=== PATIENT | male | born 1955 | race Caucasian/White ===

== ENCOUNTER 2016-05-12 10:19 | Inpatient (IN) | payer OTHER ==
[~2016-05-12 10:19] MED LIST: BUPIVACAINE 0.5% 30 ML SDV ONE; HEPARIN 1000 UNIT/1 ML MDV ONE; SKIN ADHESIVE (DERMABOND) 1 EACH TP ONE; ceFAZolin 1 GM/5 ML SYR ONE; cefOXitin SODIUM 1 GM in D5W 50 ML IV ONE
[2016-05-12] MEDS ORDERED: LIDOCAINE 1% 2 ML INJ ONE (10:44)
[2016-05-12] MEDS ORDERED: CEFAZOLIN 1 GM/DEXTROSE/50 ML BAG IV ONE (10:49)
[2016-05-12 11:52] LABS: ANION GAP 12 mEq/L (8-16); CALCIUM 9.1 mg/dL (8.5-10.4); CARBON DIOXIDE 23 mEq/l (22-31); CHLORIDE 97 mEq/L (97-110); CREATININE 1.9 mg/dL (0.7-1.3); GLOMERULAR FILTRATION RATE 36; GLUCOSE 84 mg/dL (70-100); POTASSIUM 5.3 mEq/L (3.5-5.2); SODIUM 132 mEq/L (134-144)
[2016-05-12] MEDS ORDERED: ACETAMINOPHEN 325 MG TAB PO PRN (12:21)
--- NOTE | 2016-05-12 12:32 | POSTOPPROG ---
Post Op Note Date of Operation: 05/12/16 Surgeon: Main Magaña Public Health Worker: Richie Duncan PA-C, THEODORE Aguilar MS, Ifeanyi Domínguez MS Anesthesiologist: Promise Leigh MD Anesthesia: GET(General Endotracheal) Pre-op Diagnosis: colon cancer, umbilical hernia Post-op Diagnosis: same Procedure: lap assisted transverse colectomy and umbilical hernia repair Findings: 10 mm ulcer in transverse colon rather than distal ascending colon Inf/Abcess present in the surg proc area at time of surgery?: No EBL: 100-500 Complications: none Specimen(s): umbilical hernia sac (permanent), transverse colon (fresh)
[2016-05-12] MEDS ORDERED: PROPOFOL 200 MG/20 ML VIAL ONE (12:33)
[2016-05-12] MEDS ORDERED: HYDROmorphONE/DILAUDID 2 MG/ML INJ ONE ×3 (12:33→16:27)
[2016-05-12] MEDS ORDERED: fentaNYL 250 MCG/5 ML INJ ONE (12:33)
[2016-05-12] MEDS ORDERED: HYDROmorphONE/DILAUDID 1 MG/ML SYR IVP PRN (12:33)
[2016-05-12] MEDS ORDERED: HYDROCODONE/APAP 5/325 TAB PO PRN (12:35)
[2016-05-12] MEDS ORDERED: ROCURONIUM 100 MG/10 ML VIAL ONE (12:37)
[2016-05-12] MEDS ORDERED: DEXAMETHASONE 4 MG/ML VIAL ONE (12:37)
[2016-05-12] MEDS ORDERED: LIDOCAINE 2% 100 MG/5 ML SYR ONE (12:37)
[2016-05-12] MEDS ORDERED: LIDOCAINE HCL 160 MG/4 ML LTA KIT TP ONE (12:37)
[2016-05-12] MEDS ORDERED: GLYCOPYRROLATE 0.2 MG/1 ML VIAL ONE (14:59)
[2016-05-12] MEDS ORDERED: NEOSTIGMINE METHYLSULFATE 5 MG/5 ML SYR ONE (14:59)
[2016-05-12] MEDS ORDERED: HYDROmorphONE/DILAUDID 1 MG/ML SYR IVP ONE (16:32)
[2016-05-12] MEDS ORDERED: NALOXONE HCL 0.4 MG/ML INJ IVP PRN ×2 (16:32→18:17)
[2016-05-12] MEDS: D5W 1/2 NS W/ 20 KCl/L 1,000 ML IV SCH (17:24)
[2016-05-12] MEDS: cefOXitin SODIUM 1 GM in D5W 50 ML IV SCH ×2 (18:14→23:53)
--- NOTE | 2016-05-12 18:23 | SOAPPROG ---
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
[2016-05-12] MEDS ORDERED: ALBUMIN 5% 500 ML IV ONE (18:30)
[2016-05-12] MEDS: HYDROmorphONE/DILAUDID 6 MG/30 ML PCA IV PRN (19:45)
[2016-05-12] MEDS: OXYCODONE/APAP 5/325 TAB PO PRN (21:15)
[2016-05-13] MEDS: OXYCODONE/APAP 5/325 TAB PO PRN ×4 (01:33→18:49)
[2016-05-13 04:57] LABS: HEMATOCRIT 18.5 % (40.0-51.0); HEMOGLOBIN 6.2 g/dL (13.7-17.5)
[2016-05-13] MEDS ORDERED: DIAZEPAM 5 MG TAB PO ONE (05:00)
[2016-05-13] MEDS: cefOXitin SODIUM 1 GM in D5W 50 ML IV SCH (05:02)
[2016-05-13 05:13] LABS: ANION GAP 10 mEq/L (8-16); CALCIUM 8.4 mg/dL (8.5-10.4); CARBON DIOXIDE 21 mEq/l (22-31); CHLORIDE 98 mEq/L (97-110); CREATININE 3.2 mg/dL (0.7-1.3); GLOMERULAR FILTRATION RATE 20; GLUCOSE 166 mg/dL (70-100); POTASSIUM 6.1 mEq/L (3.5-5.2); SODIUM 129 mEq/L (134-144)
[2016-05-13] MEDS: HYDROmorphONE/DILAUDID 6 MG/30 ML PCA IV PRN ×3 (07:19→21:00)
[2016-05-13 07:56] LABS: % IMMATURE GRANULYOCYTES 0.6 % (0.0-1.1); ABSOLUTE IMMATURE GRANULOCYTES 0.09 10^3/uL (0.00-0.10); ADD DIFF? NO; ADD MORPH? YES; ADD SCAN? NO; ATYPICAL LYMPHOCYTE FLAG 10 (0-99); FRAGMENT RBC FLAG 0 (0-99); LEFT SHIFT FLG 0 (0-99); LIPEMIA HEMOLYSIS FLAG 80 (0-99); MEAN CELL HEMOGLOBIN 29.9 pg (27.9-34.1); MEAN CELL HEMOGLOBIN CONCENTR. 32.8 g/dL (32.4-36.7); MEAN CELL VOLUME 91.2 fL (81.5-99.8); MEAN PLATELET VOLUME 9.7 fL (8.7-11.7); PLATELET CLUMPS FLAG 0 (0-99); PLATELET COUNT 126 10^3/uL (150-400); RED BLOOD CELL COUNT 1.94 10^6/uL (4.40-6.38); RED CELL DISTRIBUTION WIDTH 16.3 % (11.5-15.2)
[2016-05-13 08:01] LABS: HEMATOCRIT 17.7 % (40.0-51.0); HEMOGLOBIN 5.8 g/dL (13.7-17.5)
[2016-05-13 08:07] LABS: APTT 28.1 SEC (23.0-38.0); INR 1.14 (0.83-1.16); PROTIME(PATIENT) 14.5 SEC (12.0-15.0)
[2016-05-13 08:18] LABS: ALANINE AMINOTRANSFERASE 31 IU/L (21-72); ALBUMIN 3.4 g/dL (3.5-5.0); ALKALINE PHOSPHATASE 48 IU/L (38-126); ANION GAP 9 mEq/L (8-16); ASPARTATE AMINOTRANSFERASE 47 IU/L (17-59); BILIRUBIN,TOTAL 0.5 mg/dL (0.1-1.4); BILIRUBIN-CONJUGATED 0.4 mg/dL (0.0-0.5); BILIRUBIN-UNCONJUGATED 0.1 mg/dL (0.0-1.1); CALCIUM 8.4 mg/dL (8.5-10.4); CARBON DIOXIDE 23 mEq/l (22-31); CHLORIDE 98 mEq/L (97-110); CREATININE 3.6 mg/dL (0.7-1.3); GLOMERULAR FILTRATION RATE 17; GLUCOSE 154 mg/dL (70-100); SODIUM 130 mEq/L (134-144); TOTAL PROTEIN 5.6 g/dL (6.3-8.2)
[2016-05-13 08:20] LABS: HYPOCHROMIA 2+; MICROCYTES 1+; STOMATOCYTES 1+
[2016-05-13 08:21] LABS: PLATELET ESTIMATE DECREASED (ADEQ)
[2016-05-13 08:23] LABS: POTASSIUM 6.5 mEq/L (3.5-5.2)
[2016-05-13] MEDS ORDERED: ENOXAPARIN 40 MG/0.4 ML SYR SC SCH (09:00)
[2016-05-13] MEDS: D5W 1/2 NS W/ 20 KCl/L 1,000 ML IV SCH (09:46)
[2016-05-13] MEDS ORDERED: INSULIN REGULAR HUMAN 100 UNIT/ML IVP ONE (10:27)
[2016-05-13] MEDS ORDERED: D50W 25 GM/50 ML SYR IVP ONE ×2 (10:28→13:12)
[2016-05-13] MEDS ORDERED: CALCIUM GLUC 10% 1 GM/10 ML VIAL IVP ONE ×2 (10:30→11:30)
[2016-05-13] MEDS ORDERED: CALCIUM GLUCONATE 50 ML IV ONE (11:00)
[2016-05-13] MEDS ORDERED: SODIUM BICARBONATE 50 MEQ/50 ML SYR IVP ONE (11:23)
[2016-05-13] MEDS: SODIUM BICARBONATE 150 MEQ in D5W 1,000 ML IV SCH (11:47)
--- NOTE | 2016-05-13 12:37 | PDGENHP ---
History and Physical - Chief Complaint SANDRA, hyperkalemia - History of Present Illness Mr. Simon is a 60 yo M with h/o CKD stage III with baseline Cr around 2.0 from previous SANDRA with metformin and contrast, who sees Dr. Dickerson, who was admitted yesterday after an elective hernia repair and colectomy for colon cancer. Nephrology consulted today for hyperkalemia and SANDRA. Pt presented with Cr of 1.9 , at his baseline. This am, he is noted to be anemic with Hgb down to 5.8, and hyperkalemic with K up to 6.5 and Cr up to 3.6. He had 100ml UOP overnight and only 20ml this am. He notes feeling a bit anxious but breathing comfortably currently on 5L NC. History Information - Allergies/Home Medication List Allergies/Adverse Reactions: morphine Allergy (Verified 01/15/16 12:24) Hives NSAIDS (Non-Steroidal Anti-Inflamma Allergy (Verified 01/15/16 12:24) Sulfa (Sulfonamide Antibiotics) Allergy (Verified 01/15/16 12:24) Unknown Home Medications: Atenolol [Tenormin 50 mg (*)] 50 mg PO DAILY 02/04/11 [Last Taken 05/12/16] Omeprazole Magnesium [Prilosec Otc] 20 mg PO DAILY 02/04/11 [Last Taken 05/12/16 ] Calcitriol [Calcitriol (*)] 0.25 mcg PO MOWEFRSA 11/16/15 [Last Taken 05/11/16] Fenofibrate [Lofibra] 54 mg PO DAILY 11/16/15 [Last Taken 05/11/16] Furosemide [Lasix 40 MG (*)] 40 mg PO DAILY 11/16/15 [Last Taken 05/11/16] Lisinopril [Zestril 10 mg (*)] 15 mg PO DAILY 11/16/15 [Last Taken 05/11/16] Topiramate [Topamax 25MG (*)] 25 mg PO DAILY 11/16/15 [Last Taken 04/28/16] Allopurinol [Allopurinol 300 MG (RX)] 300 mg PO DAILY 05/03/16 [Last Taken 05/12] Aspirin [Aspirin 81mg (*)] 81 mg PO MOWEFRSA 05/03/16 [Last Taken 05/05/16] Minoxidil [Minoxidil 10 mg (*)] 10 mg PO BID 05/13/16 [Last Taken 05/12/16] oxyCODONE IR [Oxycodone Ir (*)] 10 mg PO Q6 PRN 05/13/16 [Last Taken Unknown] I have personally reviewed and updated: medical history Past Medical History: CKD stage III. HTN. DM. colon cancer. HLD - Surgical History Additional surgical history: Neck surgeries. L hip surgery. R shoulder surgery. hernia repair and colectomy - Family History Additional family history: noncontributory - Social History Smoking Status: Former smoker Review of Systems ROS: 10pt was reviewed & negative except for what was stated in HPI & below Physical Exam Temp Pulse Resp BP Pulse Ox 36.7 C 65 9 L 108/64 90 L 05/13/16 10:00 05/13/16 10:00 05/13/16 10:00 05/13/16 10:00 05/13/16 10:00 O2 (L/minute) 4 Constitutional: no apparent distress, appears nourished, not in pain Eyes: PERRL, anicteric sclera, EOMI Ears, Nose, Mouth, Throat: moist mucous membranes, hearing normal Cardiovascular: regular rate and rhythym, pulses symmetric bilaterally, edema (+ 2 bilateral lower extremities) Peripheral Pulses: 2+: dorsalis-pedis (R), dorsalis-pedis (L) Respiratory: no respiratory distress, clear to auscultation Gastrointestinal: other (soft, mild diffuse TTP with no guarding or rebound or rigidity) Skin: warm, no rashes or abrasions, No mottled Musculoskeletal: no muscle tenderness, no joint effusions Neurologic: AAOx3, CN II-XII Intact, No asterixes Psychiatric: interacting appropriately, not anxious, not encephalopathic, thought process linear Lab Data & Imaging Review 05/13/16 07:45 05/13/16 07:45 WBC 15.94 10^3/uL (3.80-9.50) H 05/13/16 07:45 RBC 1.94 10^6/uL (4.40-6.38) L 05/13/16 07:45 Hgb 5.8 g/dL (13.7-17.5) L* 05/13/16 07:45 Hct 17.7 % (40.0-51.0) L* 05/13/16 07:45 MCV 91.2 fL (81.5-99.8) 05/13/16 07:45 MCH 29.9 pg (27.9-34.1) 05/13/16 07:45 MCHC 32.8 g/dL (32.4-36.7) 05/13/16 07:45 RDW 16.3 % (11.5-15.2) H 05/13/16 07:45 Plt Count 126 10^3/uL (150-400) L 05/13/16 07:45 MPV 9.7 fL (8.7-11.7) 05/13/16 07:45 Neut % (Auto) 89.8 % (39.3-74.2) H 05/13/16 07:45 Lymph % (Auto) 2.6 % (15.0-45.0) L 05/13/16 07:45 [place] % (Auto) 6.9 % (4.5-13.0) 05/13/16 07:45 Eos % (Auto) 0.0 % (0.6-7.6) L 05/13/16 07:45 Baso % (Auto) 0.1 % (0.3-1.7) L 05/13/16 07:45 Nucleat RBC Rel Count 0.0 % (0.0-0.2) 05/13/16 07:45 Absolute Neuts (auto) 14.32 10^3/uL (1.70-6.50) H 05/13/16 07:45 Absolute Lymphs (auto) 0.42 10^3/uL (1.00-3.00) L 05/13/16 07:45 Absolute Monos (auto) 1.10 10^3/uL (0.30-0.80) H 05/13/16 07:45 Absolute Eos (auto) 0.00 10^3/uL (0.03-0.40) L 05/13/16 07:45 Absolute Basos (auto) 0.01 10^3/uL (0.02-0.10) L 05/13/16 07:45 Absolute Nucleated RBC 0.00 10^3/uL (0-0.01) 05/13/16 07:45 Immature Gran % 0.6 % (0.0-1.1) 05/13/16 07:45 Immature Gran # 0.09 10^3/uL (0.00-0.10) 05/13/16 07:45 Platelet Estimate DECREASED (ADEQ) L 05/13/16 07:45 Hypochromasia 2+ H 05/13/16 07:45 Microcytic Cells 1+ H 05/13/16 07:45 Stomatocytes 1+ H 05/13/16 07:45 PT 14.5 SEC (12.0-15.0) 05/13/16 07:45 INR 1.14 (0.83-1.16) 05/13/16 07:45 APTT 28.1 SEC (23.0-38.0) 05/13/16 07:45 Sodium 130 mEq/L (134-144) L 05/13/16 07:45 Potassium 6.5 mEq/L (3.5-5.2) H* 05/13/16 07:45 Chloride 98 mEq/L (97-110) 05/13/16 07:45 Carbon Dioxide 23 mEq/l (22-31) 05/13/16 07:45 Anion Gap 9 mEq/L (8-16) 05/13/16 07:45 BUN 48 mg/dL (7-23) H 05/13/16 07:45 Creatinine 3.6 mg/dL (0.7-1.3) H 05/13/16 07:45 Estimated GFR 17 05/13/16 07:45 Glucose 154 mg/dL (70-100) H 05/13/16 07:45 Calcium 8.4 mg/dL (8.5-10.4) L 05/13/16 07:45 Total Bilirubin 0.5 mg/dL (0.1-1.4) 05/13/16 07:45 Conjugated Bilirubin 0.4 mg/dL (0.0-0.5) 05/13/16 07:45 Unconjugated Bilirubin 0.1 mg/dL (0.0-1.1) 05/13/16 07:45 AST 47 IU/L (17-59) 05/13/16 07:45 ALT 31 IU/L (21-72) 05/13/16 07:45 Alkaline Phosphatase 48 IU/L (38-126) 05/13/16 07:45 Total Protein 5.6 g/dL (6.3-8.2) L 05/13/16 07:45 Albumin 3.4 g/dL (3.5-5.0) L 05/13/16 07:45 Patient ABO/Rh O POSITIVE 05/12/16 11:17 Antibody Screen NEGATIVE 05/12/16 11:17 Crossmatch IS Only See Detail 05/12/16 11:17 Assessment & Plan Assessment: Assessment/Plan: SANDRA on CKD stage III: likely has ATN perioperatively, oliguric, hyperkalemic. - Will continue to monitor. - If cannot correct hyperkalemia, may require HD. - Strict I/Os. - Avoid MOM, morphine, demerol, NSAIDs, contrast, aminoglycosides, fleets, and other nephrotoxins. Hyperkalemia: K up to 6.5. - Pt unable to get urgent therapies on regular floor, will transfer to ICU. - Will order calcium, insulin/D50 to be given once he is in ICU. - Will give one amp bicarb now. - Will stop IVFs containing bicarb. - Will give 250ml NS bolus and then switch IVFs to D5W with three amps of bicarb. - Will continue to monitor closely. - Will not give kayexalate given his recent bowel surgery. - Can try Lasix although his UOP may not respond with SANDRA as above. - If unable to improve, may need emergent HD today. Anemia: Hgb 5.8, pt getting 2 units PRBCs now. Thank you for the interesting consult. Nephrology will continue to follow, please call if you have any additional questions or concerns.
[2016-05-13 12:40] LABS: ANION GAP 8 mEq/L (8-16); CALCIUM 8.3 mg/dL (8.5-10.4); CARBON DIOXIDE 22 mEq/l (22-31); CHLORIDE 98 mEq/L (97-110); CREATININE 3.7 mg/dL (0.7-1.3); GLOMERULAR FILTRATION RATE 17; GLUCOSE 118 mg/dL (70-100); SODIUM 128 mEq/L (134-144)
[2016-05-13 12:59] LABS: POTASSIUM 6.4 mEq/L (3.5-5.2)
[2016-05-13] MEDS ORDERED: INSULIN REGULAR HUMAN 100 UNIT/ML ONE (13:12)
[2016-05-13 14:35] LABS: HEMATOCRIT 21.4 % (40.0-51.0); HEMOGLOBIN 7.2 g/dL (13.7-17.5); MEAN CELL HEMOGLOBIN 29.1 pg (27.9-34.1); MEAN CELL HEMOGLOBIN CONCENTR. 33.6 g/dL (32.4-36.7); MEAN CELL VOLUME 86.6 fL (81.5-99.8); RED BLOOD CELL COUNT 2.47 10^6/uL (4.40-6.38); RED CELL DISTRIBUTION WIDTH 16.1 % (11.5-15.2)
[2016-05-13 14:40] LABS: ALANINE AMINOTRANSFERASE 26 IU/L (21-72); ALBUMIN 3.3 g/dL (3.5-5.0); ALKALINE PHOSPHATASE 47 IU/L (38-126); ANION GAP 8 mEq/L (8-16); ASPARTATE AMINOTRANSFERASE 52 IU/L (17-59); BILIRUBIN,TOTAL 1.1 mg/dL (0.1-1.4); CALCIUM 8.5 mg/dL (8.5-10.4); CARBON DIOXIDE 25 mEq/l (22-31); CHLORIDE 99 mEq/L (97-110); GLOMERULAR FILTRATION RATE 15; GLUCOSE 77 mg/dL (70-100); POTASSIUM 5.4 mEq/L (3.5-5.2); SODIUM 132 mEq/L (134-144); TOTAL PROTEIN 5.5 g/dL (6.3-8.2)
[2016-05-13] MEDS ORDERED: FUROSEMIDE 100 MG/10 ML VIAL IVP ONE ×2 (16:00→23:00)
--- NOTE | 2016-05-13 16:03 | SOAPPROG ---
SOAP Progress Note Assessment/Plan: Assessment: 60yo male s/p colectomy for cancer, significant bleeding overnight with decreased HCT, under went transfusion. Renal consulted given worsening renal failure. Patient seen earlier this AM with Dr Magaña Pain controlled, not passing any gas yet. Denies SOB, chest pain PE awake alert comfortable abdomen distended, RLQ incision with small hematoma, sutures in place, soft. Plan: appreciate renal consult will continue to follow closely. 05/13/16 16:00 Objective: Vital Signs Temp Pulse Resp BP Pulse Ox 36.7 C 78 8 L 129/66 H 95 05/13/16 10:00 05/13/16 13:35 05/13/16 13:35 05/13/16 13:35 05/13/16 13:35 Laboratory Results 05/13/16 14:13 05/13/16 14:13 05/12/16 05/13/16 05/14/16 05:59 05:59 05:59 Intake Total 2050 Output Total 600 Balance 1450 PT 14.5 SEC (12.0-15.0) 05/13/16 07:45 INR 1.14 (0.83-1.16) 05/13/16 07:45 ICD10 Worksheet Patient Problems: Problems Problem Status Onset Cervical stenosis of spine Acute
[2016-05-13 17:48] LABS: HEMATOCRIT 20.5 % (40.0-51.0); HEMOGLOBIN 7.1 g/dL (13.7-17.5); MEAN CELL HEMOGLOBIN 30.2 pg (27.9-34.1); MEAN CELL HEMOGLOBIN CONCENTR. 34.6 g/dL (32.4-36.7); MEAN CELL VOLUME 87.2 fL (81.5-99.8); RED BLOOD CELL COUNT 2.35 10^6/uL (4.40-6.38); RED CELL DISTRIBUTION WIDTH 16.3 % (11.5-15.2)
[2016-05-13 18:09] LABS: ANION GAP 8 mEq/L (8-16); CALCIUM 8.4 mg/dL (8.5-10.4); CARBON DIOXIDE 25 mEq/l (22-31); CHLORIDE 97 mEq/L (97-110); CREATININE 4.1 mg/dL (0.7-1.3); GLOMERULAR FILTRATION RATE 15; GLUCOSE 109 mg/dL (70-100); POTASSIUM 5.3 mEq/L (3.5-5.2); SODIUM 130 mEq/L (134-144)
--- NOTE | 2016-05-13 18:29 | GCON ---
[f rep st] CONSULTATION CRITICAL CARE CONSULT DATE OF CONSULTATION: 05/13/2016 HISTORY OF PRESENT ILLNESS: The patient is a 60-year-old male with a recent diagnosis of colon canc er who was admitted for a colectomy and hernia repair. Overnight, he had some significant bleeding and required 2 units of blood but also was found to be hyperkalemic and required urgent transfer to the intensive care unit to receive definitive therapy. The patient says that he has a known history of chronic kidney disease with a creatinine normally at around 2.0 but has otherwise been fairly st able. He also has hypertension and diabetes. He has never required dialysis in the past and is oth erwise feeling well. He denied any chest pain or palpitations. There has been no syncope or no arr hythmias that have been noted, and he denies any current pain. PAST MEDICAL HISTORY: Includes: 1. Colon cancer. 2. Chronic kidney disease stage 3. 3. Hypertension. 4. Gastroesophageal reflux disease. 5. Gout. 6. Hyperlipidemia. 7. Diabetes. PAST SURGICAL HISTORY: Includes: 1. Neck surgery. 2. Left hip. 3. Right shoulder surgery. 4. Hernia repair. 5. The colectomy, as described above. SOCIAL HISTORY: He is a former smoker but none currently. No significant alcohol. FAMILY HISTORY: Noncontributory. MEDICATIONS: As of earlier today included atenolol, omeprazole, calcitriol, Lofibra, Lasix, Zestril , Topamax, allopurinol, aspirin, minoxidil, oxycodone immediate release. PHYSICAL EXAM: VITAL SIGNS: He was afebrile. Blood pressure was 108/64, heart rate of 65, oxygen saturation was 90% on 4 L. GENERAL: He was overweight but awake and alert, in no apparent distress and oriented x3. Able to speak in full sentences without using accessory muscles for breathing. H EENT: Pupils were equally round and reactive to light. Nonicteric and noninjected. Mucous membran es are moist, without erythema or exudate. NECK: Supple, without adenopathy or jugular venous dist ention. RESPIRATORY: Breath sounds were clear to auscultation bilaterally, without wheezes, rubs, or rales. HEART: A regular rate and rhythm, without obvious murmur. ABDOMEN: Hypoactive bowel to louann, was otherwise soft and not particularly tender, without rebound. EXTREMITIES: Show no clubbin g, cyanosis, or edema. NEUROLOGIC: Nonfocal, including cranial nerves and deep tendon reflexes. S KIN: Warm and dry, without evidence of rash. OBJECTIVE DATA: Includes a white count of 15.9 with a hematocrit of 17.7, and platelets of 126. Hi s sodium was 130, potassium 6.5, chloride 98, bicarb 23, BUN 48, creatinine 3.6, glucose 154. Album in was 3.4, but LFTs were normal. ASSESSMENT/PLAN: 1. Hyperkalemia. This may be from hypovolemia in the setting of chronic kidney disease and ongoing Lasix. Nephrology has already been consulted, and I agree with their plans. He has received calci um, insulin, D50, a bicarb amp followed by a bicarb drip. We will consider some Lasix in the near f uture but we are concerned about his kidney function at this time. He may end up requiring dialysis subsequently but the noon lab showed the potassium down to 5.4, with a slight increase of his creat inine to 4.0. The hematocrit was up to 21.4, and he remains normotensive at this time. Will have t o do careful laboratory evaluation with another chemistry set this evening and consider whether or n ot dialysis will be imminently required and will also, of course, have to avoid all nephrotoxins. 2. Anemia, postoperatively. He does not appear to be actively bleeding at this time but I think th at ongoing evaluation of his hematocrit overnight would certainly be warranted. 3. Colectomy. Leave the oral advancement to diet with Dr. Magaña at this time but this appears to b e relatively stable and I do not feel that additional surgery is required right at this moment. /[id number]/MODL
[2016-05-14] MEDS: SODIUM BICARBONATE 150 MEQ in D5W 1,000 ML IV SCH (01:42)
[2016-05-14] MEDS: HYDROmorphONE/DILAUDID 6 MG/30 ML PCA IV PRN ×4 (01:59→21:35)
[2016-05-14] MEDS: OXYCODONE/APAP 5/325 TAB PO PRN ×3 (03:32→19:40)
[2016-05-14 04:24] LABS: % IMMATURE GRANULYOCYTES 0.5 % (0.0-1.1); ABSOLUTE IMMATURE GRANULOCYTES 0.04 10^3/uL (0.00-0.10); ADD DIFF? NO; ADD MORPH? YES; ADD SCAN? NO; ATYPICAL LYMPHOCYTE FLAG 0 (0-99); FRAGMENT RBC FLAG 0 (0-99); HEMATOCRIT 19.6 % (40.0-51.0); LEFT SHIFT FLG 40 (0-99); LIPEMIA HEMOLYSIS FLAG 90 (0-99); MEAN CELL HEMOGLOBIN 30.1 pg (27.9-34.1); MEAN CELL HEMOGLOBIN CONCENTR. 34.7 g/dL (32.4-36.7); MEAN CELL VOLUME 86.7 fL (81.5-99.8); MEAN PLATELET VOLUME 10.4 fL (8.7-11.7); PLATELET CLUMPS FLAG 10 (0-99); PLATELET COUNT 95 10^3/uL (150-400); RED BLOOD CELL COUNT 2.26 10^6/uL (4.40-6.38); RED CELL DISTRIBUTION WIDTH 16.6 % (11.5-15.2)
[2016-05-14 04:30] LABS: ALBUMIN 3.2 g/dL (3.5-5.0); ANION GAP 10 mEq/L (8-16); CALCIUM 8.2 mg/dL (8.5-10.4); CARBON DIOXIDE 26 mEq/l (22-31); CHLORIDE 96 mEq/L (97-110); CREATININE 3.8 mg/dL (0.7-1.3); GLOMERULAR FILTRATION RATE 16; GLUCOSE 115 mg/dL (70-100); POTASSIUM 5.6 mEq/L (3.5-5.2); SODIUM 132 mEq/L (134-144)
[2016-05-14 04:48] LABS: HEMOGLOBIN 6.8 g/dL (13.7-17.5)
[2016-05-14 06:49] LABS: PLATELET ESTIMATE DECREASED (ADEQ)
[2016-05-14 06:50] LABS: HYPOCHROMIA 2+; MICROCYTES 1+; POLYCHROMASIA 1+
[2016-05-14] MEDS ORDERED: FUROSEMIDE 100 MG/10 ML VIAL IVP ONE (09:34)
--- NOTE | 2016-05-14 09:39 | SOAPPROG ---
SOAP Progress Note Assessment/Plan: Assessment/Plan: SANDRA on CKD stage III: likely has ATN perioperatively, was oliguric and hyperkalemic. Now with good UOP with Lasix, Cr peaked at 4.1 and today is down to 3.8. - Will continue to monitor. - Getting IVFs and PRBCs today. - No emergent need for HD. - Avoid MOM, morphine, demerol, NSAIDs, contrast, aminoglycosides, fleets, and other nephrotoxins. Hyperkalemia: improved, K up to 6.5 yesterday, got calcium, insulin/D50, bicarb amp, bicarb ggt, and Lasix. K down to 5.6 today. - Will give another dose of Lasix today. - Continue bicarb ggt. - No need for HD. - Will continue to monitor. - Please avoid fluids containing potassium. - Avoid kayexalate given his recent bowel surery. Anemia: Hgb still 6.8, getting more PRBCs today. Subjective: No acute events overnight. Pt remains anemic, getting more PRBCs transfused today. He is responding well to Lasix with good UOP now, 1850ml overnight. Objective: Vital Signs Temp Pulse Resp BP Pulse Ox 36.9 C 77 12 137/67 H 95 05/13/16 20:00 05/14/16 06:00 05/14/16 06:00 05/14/16 06:00 05/14/16 06:00 Laboratory Results 05/14/16 04:07 05/14/16 04:07 05/13/16 05/14/16 05/15/16 05:59 05:59 05:59 Intake Total 2050 1245 Output Total 600 1850 Balance 1450 -605 PT 14.5 SEC (12.0-15.0) 05/13/16 07:45 INR 1.14 (0.83-1.16) 05/13/16 07:45 General: alert and oriented, no acute distress Eyes; EOMI, PERRL OP: Clear CV: RRR Resp: nonlabored respiraitons on 5L NC Abd: Soft, distended Ext: trace edema BLE Neuro: CN II-XII grossly intact, no asterixis Psych: cooperative, appropriate mood and affect ICD10 Worksheet Patient Problems: Problems Problem Status Onset Cervical stenosis of spine Acute
[2016-05-14 12:07] LABS: ALBUMIN 3.2 g/dL (3.5-5.0); ANION GAP 10 mEq/L (8-16); CALCIUM 8.3 mg/dL (8.5-10.4); CARBON DIOXIDE 26 mEq/l (22-31); CHLORIDE 96 mEq/L (97-110); CREATININE 3.9 mg/dL (0.7-1.3); GLOMERULAR FILTRATION RATE 16; GLUCOSE 116 mg/dL (70-100); POTASSIUM 5.5 mEq/L (3.5-5.2); SODIUM 132 mEq/L (134-144)
[2016-05-14] MEDS ORDERED: CANN-EASE 2 GM TUBE TP ONE (12:56)
[2016-05-14 13:24] LABS: HEMATOCRIT 25.1 % (40.0-51.0); HEMOGLOBIN 8.6 g/dL (13.7-17.5)
--- NOTE | 2016-05-14 16:31 | PDINTPN ---
Hospitality Director Progress Note Assessment/Plan: Assessment/plan: 60 M with CKD and colon cancer s/p resection 05/[address] Magaña, complicated by acute on chronic renal failure and postoperative severe anemia. He was treated with RBCs, as well as Calcium, Insulin/D50, HCO3 push and drip with resolution of his severe hyperkalemia. His pain has been controlled and he is able to ambulate in the halls without difficulty. * Acute on CKD- probably hypovolemic with severe anemia. He has responded well to the HCO3 drip and small doses of lasix with excellent UOP. No HD indicated at this time. * Anemia- he required 2 units 3/24 and 2 more units today, though I dont see active bleeding at the moment (eg per VS). Recheck looks OK and will continue to follow. Discussed with Dr. Magaña and holding off on abdominal CT at the moment. Check haptoglobin * HTN- as pout patient he was taking atenolol 50, lisinopril 10, minoxidil 10, lasix 40. His BP is controlled at the moment, but we may need to start resuming outpatient meds soon. * GERD on omeprazole as outpatient- will start now * Subjective: Stable overnight. iven lasix by renal with brisk UOP and improved potassium Objective: Vital Signs Temp Pulse Resp BP Pulse Ox 37.1 C 73 14 135/67 H 95 05/14/16 12:00 05/14/16 14:00 05/14/16 14:00 05/14/16 14:00 05/14/16 14:00 Laboratory Results 05/14/16 13:05 05/14/16 04:14 05/13/16 05/14/16 05/15/16 05:59 05:59 05:59 Intake Total 2050 1245 Output Total 600 1850 1625 Balance 1450 -605 -1625 PT 14.5 SEC (12.0-15.0) 05/13/16 07:45 INR 1.14 (0.83-1.16) 05/13/16 07:45 Physical Exam - Physical Exam General Appearance: alert, no apparent distress EENT: PERRL/EOMI Neck: supple Respiratory: lungs clear, normal breath sounds, No respiratory distress, No rales, No rhonchi Cardiac/Chest: normal peripheral pulses, regular rate, rhythm, No edema Abdomen: non-tender, soft, No distended, No guarding Skin: normal color, warm/dry Lymphatic: no adenopathy Extremities: No pedal edema Neuro/Psych: alert, normal mood/affect, oriented x 3 ICD10 Worksheet Patient Problems: Problems Problem Status Onset Cervical stenosis of spine Acute
--- NOTE | 2016-05-14 16:44 | SOAPPROG ---
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 05/12/16 18:21 05/14/16 16:41 LOOK STABLE TODAY / URINE OUTPUT IS EXCELLENT / CREATININE STABLE AT 3.8 / HEMATOCRIT UP TO 25 / ABDOMEN SOFT NOT REALLY TENDER BUT MILDLY DISTENDED / CONTINUE OBSERVATION AND HOPEFULLY CONTINUED RENAL IMPROVEMENT Objective: Vital Signs Temp Pulse Resp BP Pulse Ox 37 C 73 13 124/56 H 95 05/14/16 16:00 05/14/16 16:00 05/14/16 16:00 05/14/16 16:00 05/14/16 16:00 Laboratory Results 05/14/16 13:05 05/14/16 04:14 05/13/16 05/14/16 05/15/16 05:59 05:59 05:59 Intake Total 2050 1245 Output Total 600 1850 2475 Balance 1450 -605 -2475 PT 14.5 SEC (12.0-15.0) 05/13/16 07:45 INR 1.14 (0.83-1.16) 05/13/16 07:45 ICD10 Worksheet Patient Problems: Problems Problem Status Onset Cervical stenosis of spine Acute
[2016-05-14 17:06] LABS: HEMATOCRIT 23.3 % (40.0-51.0); HEMOGLOBIN 8.2 g/dL (13.7-17.5)
[2016-05-14 19:34] LABS: ALBUMIN 3.3 g/dL (3.5-5.0); ANION GAP 9 mEq/L (8-16); CALCIUM 8.3 mg/dL (8.5-10.4); CARBON DIOXIDE 32 mEq/l (22-31); CHLORIDE 92 mEq/L (97-110); CREATININE 3.4 mg/dL (0.7-1.3); GLOMERULAR FILTRATION RATE 18; GLUCOSE 143 mg/dL (70-100); POTASSIUM 5.4 mEq/L (3.5-5.2); SODIUM 133 mEq/L (134-144)
[2016-05-14] MEDS ORDERED: NS 1,000 ML IV SCH (20:00)
[2016-05-15] MEDS: OXYCODONE/APAP 5/325 TAB PO PRN ×3 (00:10→21:10)
[2016-05-15] MEDS ORDERED: SODIUM CL NASAL 45 ML BTL EACHNARE PRN (02:01)
[2016-05-15 06:24] LABS: HEMATOCRIT 22.7 % (40.0-51.0); HEMOGLOBIN 7.6 g/dL (13.7-17.5); MEAN CELL HEMOGLOBIN 28.9 pg (27.9-34.1); MEAN CELL HEMOGLOBIN CONCENTR. 33.5 g/dL (32.4-36.7); MEAN CELL VOLUME 86.3 fL (81.5-99.8); RED BLOOD CELL COUNT 2.63 10^6/uL (4.40-6.38); RED CELL DISTRIBUTION WIDTH 17.7 % (11.5-15.2)
[2016-05-15 06:44] LABS: ANION GAP 9 mEq/L (8-16); CALCIUM 8.3 mg/dL (8.5-10.4); CARBON DIOXIDE 30 mEq/l (22-31); CHLORIDE 98 mEq/L (97-110); CREATININE 3.3 mg/dL (0.7-1.3); GLOMERULAR FILTRATION RATE 19; GLUCOSE 85 mg/dL (70-100); POTASSIUM 5.4 mEq/L (3.5-5.2); SODIUM 137 mEq/L (134-144)
[2016-05-15 10:09] LABS: INR 1.08 (0.83-1.16); PROTIME(PATIENT) 13.9 SEC (12.0-15.0)
--- NOTE | 2016-05-15 10:38 | SOAPPROG ---
SOAP Progress Note Assessment/Plan: Assessment/Plan: SANDRA on CKD stage III: likely has ATN perioperatively, was oliguric and hyperkalemic. Now with good UOP with Lasix, Cr peaked at 4.1 and today is down to 3.3. - Will continue to monitor. - Will continue NS @ 50ml/hr. - No emergent need for HD. - Avoid MOM, morphine, demerol, NSAIDs, contrast, aminoglycosides, fleets, and other nephrotoxins. Hyperkalemia: improved, K up to 6.5 o Monday, got calcium, insulin/D50, bicarb amp, bicarb ggt, and Lasix. K down to 5.4 today. - Will continue NS. - No need for HD. - Will continue to monitor. - Please avoid fluids containing potassium. - Avoid kayexalate given his recent bowel surery. Anemia: Hgb improved to 7.6 with additional PRBCs given, will monitor. Subjective: No acute events overnight. Pt still with some abdominal pain, but walking around today, overall better. He has had large UOP in past 24 hours. Objective: Vital Signs Temp Pulse Resp BP Pulse Ox 37.3 C 79 14 149/92 H 95 05/15/16 08:00 05/15/16 10:00 05/15/16 10:00 05/15/16 10:00 05/15/16 10:00 Laboratory Results 05/15/16 05:55 05/15/16 05:55 05/14/16 05/15/16 05/16/16 05:59 05:59 05:59 Intake Total 1245 1480 Output Total 1850 3725 270 Balance -605 -2245 -270 PT 13.9 SEC (12.0-15.0) 05/15/16 09:50 INR 1.08 (0.83-1.16) 05/15/16 09:50 General: alert and oriented, no acute distress Eyes; EOMI, PERRL OP: Clear CV: RRR Resp: nonlabored respirations on NC Abd: Soft, distended Ext: trace edema BLE Neuro: CN II-XII grossly intact, no asterixis Psych: cooperative, appropriate mood and affect ICD10 Worksheet Patient Problems: Problems Problem Status Onset Cervical stenosis of spine Acute
--- NOTE | 2016-05-15 12:20 | SOAPPROG ---
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 05/12/16 18:21 05/14/16 16:41 LOOK STABLE TODAY / URINE OUTPUT IS EXCELLENT / CREATININE STABLE AT 3.8 / HEMATOCRIT UP TO 25 / ABDOMEN SOFT NOT REALLY TENDER BUT MILDLY DISTENDED / CONTINUE OBSERVATION AND HOPEFULLY CONTINUED RENAL IMPROVEMENT 05/15/16 12:18 VS STABLE/ SOME BS/ WOUND OK/ AFEBRILE/ HCT DRIFTING DOWN/ MODERATELY DISTENDED/ PATH PENDING/ CREATININE IMPROVING Objective: Vital Signs Temp Pulse Resp BP Pulse Ox 36.9 C 81 17 142/67 H 93 05/15/16 12:00 05/15/16 12:00 05/15/16 12:00 05/15/16 12:00 05/15/16 12:00 Laboratory Results 05/15/16 05:55 05/14/16 05/15/16 05/16/16 05:59 05:59 05:59 Intake Total 1245 1480 Output Total 1850 3725 270 Balance -605 -2245 -270 PT 13.9 SEC (12.0-15.0) 05/15/16 09:50 INR 1.08 (0.83-1.16) 05/15/16 09:50 ICD10 Worksheet Patient Problems: Problems Problem Status Onset Cervical stenosis of spine Acute
[2016-05-15 12:21] LABS: HEMOGLOBIN 7.8 g/dL (13.7-17.5); MEAN CELL HEMOGLOBIN 29.5 pg (27.9-34.1); MEAN CELL HEMOGLOBIN CONCENTR. 33.9 g/dL (32.4-36.7); MEAN CELL VOLUME 87.1 fL (81.5-99.8); RED BLOOD CELL COUNT 2.64 10^6/uL (4.40-6.38); RED CELL DISTRIBUTION WIDTH 17.6 % (11.5-15.2)
[2016-05-15 16:14] LABS: HEMATOCRIT 23.3 % (40.0-51.0); HEMOGLOBIN 7.9 g/dL (13.7-17.5)
--- NOTE | 2016-05-15 16:31 | PDINTPN ---
Superintendent Track Progress Note Assessment/Plan: Assessment/plan: 60 M with CKD and colon cancer s/p resection 05/[address] Magaña, complicated by acute on chronic renal failure and postoperative severe anemia. He was treated with RBCs, as well as Calcium, Insulin/D50, HCO3 push and drip with resolution of his severe hyperkalemia. His pain has been controlled and he is able to ambulate in the halls without difficulty. * Acute on CKD- probably hypovolemic with severe anemia. He has responded well to the HCO3 drip and lasix with excellent UOP. No HD indicated at this time. Creatinine continues to fall, now at 3.3. Renal managing * Anemia- he required 2 units 05/13 and 2 more units /. H/H holding steady for now. No CT indicated. * HTN- as outpatient he was taking atenolol 50, lisinopril 10, minoxidil 10, lasix 40. Resume atenolol today * GERD on omeprazole as outpatient- * Probably OK for SDU if not floor * 05/15/16 16:26 Subjective: Stable overnight. Abdominal pain controlled. Objective: Vital Signs Temp Pulse Resp BP Pulse Ox 36.9 C 66 12 146/62 H 93 05/15/16 12:00 05/15/16 14:00 05/15/16 14:00 05/15/16 14:00 05/15/16 14:00 Laboratory Results 05/15/16 16:05 05/15/16 05:55 05/14/16 05/15/16 05/16/16 05:59 05:59 05:59 Intake Total 1245 1480 400 Output Total 1850 3725 670 Balance -605 -2245 -270 PT 13.9 SEC (12.0-15.0) 05/15/16 09:50 INR 1.08 (0.83-1.16) 05/15/16 09:50 Physical Exam - Physical Exam General Appearance: WD/WN, alert, no apparent distress EENT: PERRL/EOMI Neck: supple Respiratory: lungs clear, normal breath sounds, No respiratory distress, No rales Cardiac/Chest: normal peripheral pulses, regular rate, rhythm, No edema Abdomen: normal bowel sounds, soft, No distended, No guarding Skin: normal color, warm/dry Lymphatic: no adenopathy Extremities: No pedal edema Neuro/Psych: alert, normal mood/affect, oriented x 3 ICD10 Worksheet Patient Problems: Problems Problem Status Onset Cervical stenosis of spine Acute
[2016-05-15] MEDS: HYDROmorphONE/DILAUDID 6 MG/30 ML PCA IV PRN (21:09)
[2016-05-16] MEDS: OXYCODONE/APAP 5/325 TAB PO PRN ×4 (01:26→21:24)
[2016-05-16 04:23] LABS: HEMATOCRIT 21.3 % (40.0-51.0); HEMOGLOBIN 7.3 g/dL (13.7-17.5); MEAN CELL HEMOGLOBIN 29.9 pg (27.9-34.1); MEAN CELL HEMOGLOBIN CONCENTR. 34.3 g/dL (32.4-36.7); MEAN CELL VOLUME 87.3 fL (81.5-99.8); RED BLOOD CELL COUNT 2.44 10^6/uL (4.40-6.38); RED CELL DISTRIBUTION WIDTH 17.3 % (11.5-15.2)
[2016-05-16 04:30] LABS: ALBUMIN 2.9 g/dL (3.5-5.0); ANION GAP 8 mEq/L (8-16); CALCIUM 8.1 mg/dL (8.5-10.4); CARBON DIOXIDE 28 mEq/l (22-31); CHLORIDE 99 mEq/L (97-110); CREATININE 2.6 mg/dL (0.7-1.3); GLOMERULAR FILTRATION RATE 25; GLUCOSE 92 mg/dL (70-100); POTASSIUM 4.8 mEq/L (3.5-5.2); SODIUM 135 mEq/L (134-144)
[2016-05-16] MEDS ORDERED: ATENOLOL 50 MG TAB ONE (06:25)
[2016-05-16] MEDS: ATENOLOL 50 MG TAB PO SCH (07:04)
--- NOTE | 2016-05-16 11:32 | SOAPPROG ---
SOAP Progress Note Assessment/Plan: Assessment/Plan: SANDRA on CKD stage III: likely has ATN perioperatively, was oliguric and hyperkalemic. Now with good UOP with Lasix, Cr peaked at 4.1 and today is down to 2.6. His baseline is around 2.0. - Will continue to monitor. - Will stop IVFs as pt now taking PO liquids. - No emergent need for HD. - Avoid MOM, morphine, demerol, NSAIDs, contrast, aminoglycosides, fleets, and other nephrotoxins. Hyperkalemia: improved, K up to 6.5 on Monday, got calcium, insulin/D50, bicarb amp, bicarb ggt, and Lasix. K down to 4.8 today. - No need for HD. - Will continue to monitor. - Please avoid fluids containing potassium. - Avoid kayexalate given his recent bowel surery. Anemia: 2/2 acute bleed, s/p PRBCs transfused, being monitored. Subjective: No acute events overnight. Pt feeling tired, didn't sleep well last night, notes having some pain. Continues to have good UOP without Lasix. Objective: Vital Signs Temp Pulse Resp BP Pulse Ox 36.8 C 64 12 142/69 H 100 05/16/16 08:00 05/16/16 10:00 05/16/16 10:00 05/16/16 10:00 05/16/16 10:00 Laboratory Results 05/16/16 04:05 05/16/16 04:05 05/15/16 05/16/16 05/17/16 05:59 05:59 05:59 Intake Total 1480 3216 Output Total 3725 5 525 Balance -2245 1191 -525 PT 13.9 SEC (12.0-15.0) 05/15/16 09:50 INR 1.08 (0.83-1.16) 05/15/16 09:50 General: alert and oriented, no acute distress Eyes: EOMI, PERRL OP: Clear CV: RRR Resp: nonlabored respirations on 3L NC Abd: Soft, distended Ext: +1 edema BLE Neuro: CN II-XII grossly intact, no asterixis Psych: cooperative, appropriate mood and affect ICD10 Worksheet Patient Problems: Problems Problem Status Onset Cervical stenosis of spine Acute
--- NOTE | 2016-05-16 12:36 | SOAPPROG ---
SOAP Progress Note Assessment/Plan: Assessment/Plan: 60 yo M with a history of colon cancer s/p colectomy on 05/12/2016, he had extra bleeding post-op which was controlled. # H&H 7.3, 21.3 today - will continue to monitor - will transfuse 1 more pack of blood today if hemoglobin <7 Cont. DVT prophylaxis OK to SDU S: Patient was sitting at the time of examination, looking weak and tired Had a terrible sleep (-) n/v, (-) chest pain (+) BS O: Gen: awake, conscious HEENT: mmm Abd: non-tender, midline and lap incisions clean and dry. (+) large hematoma on right side of abdomen Ext: (-) edema 05/16/16 12:36 Objective: Vital Signs Temp Pulse Resp BP Pulse Ox 37.1 C 64 12 150/71 H 98 05/16/16 11:50 05/16/16 12:21 05/16/16 11:50 05/16/16 12:21 05/16/16 11:50 Laboratory Results 05/16/16 04:05 05/16/16 04:05 05/15/16 05/16/16 05/17/16 05:59 05:59 05:59 Intake Total 1480 3216 Output Total 3725 2025 525 Balance -2245 1191 -525 PT 13.9 SEC (12.0-15.0) 05/15/16 09:50 INR 1.08 (0.83-1.16) 05/15/16 09:50 ICD10 Worksheet Patient Problems: Problems Problem Status Onset Cervical stenosis of spine Acute
--- NOTE | 2016-05-16 12:46 | SOAPPROG ---
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 05/12/16 18:21 05/14/16 16:41 LOOK STABLE TODAY / URINE OUTPUT IS EXCELLENT / CREATININE STABLE AT 3.8 / HEMATOCRIT UP TO 25 / ABDOMEN SOFT NOT REALLY TENDER BUT MILDLY DISTENDED / CONTINUE OBSERVATION AND HOPEFULLY CONTINUED RENAL IMPROVEMENT 05/15/16 12:18 VS STABLE/ SOME BS/ WOUND OK/ AFEBRILE/ HCT DRIFTING DOWN/ MODERATELY DISTENDED/ PATH PENDING/ CREATININE IMPROVING 05/16/16 12:45 COMFORTABLE BUT SOMEWHAT DISTENDED / WOUND OKAY / HEMATOCRIT CONTINUES TO DROP SLOWLY / RENAL FUNCTION RECOVERING WELL WITH EXCELLENT URINE OUTPUT PLAN WILL FOLLOW HIS HEMATOCRIT / POSSIBLE TRANSFUSION IF NEEDED / PATH IS STILL PENDING Objective: Vital Signs Temp Pulse Resp BP Pulse Ox 37.1 C 64 12 150/71 H 98 05/16/16 11:50 05/16/16 12:21 05/16/16 11:50 05/16/16 12:21 05/16/16 11:50 Laboratory Results 05/16/16 04:05 05/16/16 04:05 05/15/16 05/16/16 05/17/16 05:59 05:59 05:59 Intake Total 1480 3216 Output Total 3725 5 525 Balance -2245 1191 -525 PT 13.9 SEC (12.0-15.0) 05/15/16 09:50 INR 1.08 (0.83-1.16) 05/15/16 09:50 ICD10 Worksheet Patient Problems: Problems Problem Status Onset Cervical stenosis of spine Acute
[2016-05-16 12:55] LABS: HEMOGLOBIN 7.3 g/dL (13.7-17.5)
[2016-05-16] MEDS ORDERED: ENALAPRILAT DIHYDRATE 1.25 MG/ML VIAL IV PRN (16:53)
--- NOTE | 2016-05-16 16:58 | PDINTPN ---
Upward Bound Director Progress Note Assessment/Plan: Assessment: 60 M with CKD and colon cancer s/p resection 05/[address] Magaña, complicated by acute on chronic renal failure and postoperative severe anemia. He was treated with RBCs, as well as Calcium, Insulin/D50, HCO3 push and drip with resolution of his severe hyperkalemia. His pain has been controlled and he is able to ambulate in the halls without difficulty. * Acute on CKD- New problem to me today. Improved, with Cr down to 2.6 * Hyperkalemia: Due to SANDRA. Improved, K+ 4.8 today * Anemia- Persists, with Hgb down just slightly from yesterday. * HTN: Chronic. Remains high. On atenolol. Hasn't restarted lisinopril, minoxidil. * GERD on omeprazole as outpatient- * Probably OK for SDU * JAKE: Non-compliant with CPAP for at least a year. Likely contributes to refractory HTN. Plan: Consider restarting minoxidil for HTN, per Neph. Follow Hgb, renal function. Offered CPAP, he's resistant to trying this again. 05/16/16 16:53 Objective: Vital Signs Temp Pulse Resp BP Pulse Ox 36.7 C 62 13 165/81 H 99 05/16/16 16:00 05/16/16 16:00 05/16/16 16:00 05/16/16 16:00 05/16/16 16:00 Laboratory Results 05/16/16 12:25 05/16/16 04:05 05/15/16 05/16/16 05/17/16 05:59 05:59 05:59 Intake Total 1480 3216 Output Total 3725 5 525 Balance -2245 1191 -525 PT 13.9 SEC (12.0-15.0) 05/15/16 09:50 INR 1.08 (0.83-1.16) 05/15/16 09:50 ICD10 Worksheet Patient Problems: Problems Problem Status Onset Cervical stenosis of spine Acute
[2016-05-16] MEDS ORDERED: LISINOPRIL 10 MG TAB PO SCH (17:00)
[2016-05-16] MEDS: hydrALAZINE 20 MG/ML VIAL IVP PRN ×2 (17:23→23:01)
[2016-05-16] MEDS ORDERED: MINOXIDIL 10 MG TAB PO SCH (21:00)
[2016-05-17] MEDS: OXYCODONE/APAP 5/325 TAB PO PRN ×3 (01:03→20:46)
[2016-05-17] MEDS: HYDROmorphONE/DILAUDID 6 MG/30 ML PCA IV PRN (01:58)
[2016-05-17 04:00] LABS: HEMOGLOBIN 7.7 g/dL (13.7-17.5); MEAN CELL HEMOGLOBIN 29.3 pg (27.9-34.1); MEAN CELL HEMOGLOBIN CONCENTR. 33.5 g/dL (32.4-36.7); MEAN CELL VOLUME 87.5 fL (81.5-99.8); RED BLOOD CELL COUNT 2.63 10^6/uL (4.40-6.38); RED CELL DISTRIBUTION WIDTH 17.1 % (11.5-15.2)
[2016-05-17 04:24] LABS: ANION GAP 10 mEq/L (8-16); CALCIUM 8.5 mg/dL (8.5-10.4); CARBON DIOXIDE 23 mEq/l (22-31); CHLORIDE 102 mEq/L (97-110); GLOMERULAR FILTRATION RATE 34; GLUCOSE 94 mg/dL (70-100); POTASSIUM 4.4 mEq/L (3.5-5.2); SODIUM 135 mEq/L (134-144)
[2016-05-17] MEDS: hydrALAZINE 20 MG/ML VIAL IVP PRN (04:26)
[2016-05-17] MEDS: ONDANSETRON 4 MG/2 ML VIAL IVP PRN ×3 (05:42→20:19)
[2016-05-17] MEDS: ATENOLOL 50 MG TAB PO SCH (07:55)
[2016-05-17] MEDS: PANTOPRAZOLE SODIUM 40 MG TAB PO SCH (07:55)
[2016-05-17] MEDS: TOPIRAMATE 25 MG TAB PO SCH (07:57)
--- NOTE | 2016-05-17 09:06 | SOAPPROG ---
SOAP Progress Note Assessment/Plan: Assessment: 1. SANDRA on CKD ATN, now back at baseline. Total volume up, but excellent UO off of diuretics , stable O2 requirements. 2. Anemia Hg up slightly. No urgent need for transfusion 3. K Better 4. Colon CA Path pending Plan: 05/17/16 09:05 Subjective: In good spirits Objective: Vital Signs Temp Pulse Resp BP Pulse Ox 37.3 C 88 16 167/77 H 94 05/17/16 08:00 05/17/16 08:00 05/17/16 08:00 05/17/16 08:00 05/17/16 08:00 Laboratory Results 05/17/16 03:50 05/17/16 03:50 05/16/16 05/17/16 05/18/16 05:59 05:59 05:59 Intake Total 3216 1352 Output Total 2025 525 Balance 1191 827 PT 13.9 SEC (12.0-15.0) 05/15/16 09:50 INR 1.08 (0.83-1.16) 05/15/16 09:50 Physical Exam - Physical Exam General Appearance: no apparent distress Respiratory: lungs clear Cardiac/Chest: regular rate, rhythm Abdomen: distended Extremities: pedal edema Neuro/Psych: oriented x 3 ICD10 Worksheet Patient Problems: Problems Problem Status Onset Cervical stenosis of spine Acute
--- NOTE | 2016-05-17 16:32 | PDINTPN ---
Manager Call Progress Note Assessment/Plan: Assessment: 60 M with CKD and colon cancer s/p resection 05/[address] Magaña, complicated by acute on chronic renal failure and postoperative severe anemia. He was treated with RBCs, as well as Calcium, Insulin/D50, HCO3 push and drip with resolution of his severe hyperkalemia. His pain has been controlled and he is able to ambulate in the halls without difficulty. * Acute on CKD- New problem to me today. Improved, with Cr down to 2.0 * Hyperkalemia: Due to SANDRA. Improved, K+ 4.4 today * Anemia- Persists, with Hgb up just slightly from yesterday. * HTN: Chronic. Remains high. On atenolol. Hasn't restarted lisinopril, minoxidil. * GERD on omeprazole as outpatient- * Probably OK for SDU * JAKE: Non-compliant with CPAP for at least a year. Likely contributes to refractory HTN. * S/P Colon Ca resection: Still with significant pain. Plan: Started amlodipine for HTN, per Neph. Follow Hgb, renal function. 05/17/16 16:33 Subjective: Feels OK, strength a bit better. Still has significant pain with fair control. Feels sleepy. Objective: Vital Signs Temp Pulse Resp BP Pulse Ox 37.1 C 70 17 147/79 H 99 05/17/16 16:00 05/17/16 16:00 05/17/16 16:00 05/17/16 16:00 05/17/16 16:00 Laboratory Results 05/17/16 03:50 05/17/16 03:50 05/16/16 05/17/16 05/18/16 05:59 05:59 05:59 Intake Total 3216 1352 Output Total 2024 525 Balance 1191 827 PT 13.9 SEC (12.0-15.0) 05/15/16 09:50 INR 1.08 (0.83-1.16) 05/15/16 09:50 Physical Exam - Physical Exam General Appearance: alert, no apparent distress EENT: normal ENT inspection Neck: normal inspection Respiratory: lungs clear, normal breath sounds Cardiac/Chest: regular rate, rhythm, No edema Abdomen: normal bowel sounds, non-tender Skin: normal color, warm/dry Extremities: normal inspection Neuro/Psych: alert, normal mood/affect, oriented x 3 ICD10 Worksheet Patient Problems: Problems Problem Status Onset Cervical stenosis of spine Acute
--- NOTE | 2016-05-17 17:12 | SOAPPROG ---
SOAP Progress Note Assessment/Plan: Assessment/Plan: 60 yo M colon cancer s/p colectomy on 05/12/2016, acute post op blood loss anemia. # H&H stable. 7.7, 23 today - will continue to monitor - would need to transfuse blood if <7 # creatinine 2.0 today, 2.6 yesterday - improving -- monitor # nausea - controlled by zofran # mild lower ex edema - leg elevation Advanced to regular diet Cont. DVT prophylaxis OK to SDU S: Patient was sitting at the time of examination, looking more active than yesterday (+) nausea (-) chest pain (-) O: Gen: awake, conscious HEENT: mmm Abd: tender upon palpation, midline and lap incisions clean and dry. (+) large hematoma on right side of abdomen Ext: (+) mild lower ex edema 05/17/16 17:13 05/17/16 19:23 Objective: Vital Signs Temp Pulse Resp BP Pulse Ox 37.1 C 70 17 147/79 H 99 05/17/16 16:00 05/17/16 16:00 05/17/16 16:00 05/17/16 16:00 05/17/16 16:00 Laboratory Results 05/17/16 03:50 05/17/16 03:50 05/16/16 05/17/16 05/18/16 05:59 05:59 05:59 Intake Total 3216 1352 Output Total 2024 525 Balance 1191 827 PT 13.9 SEC (12.0-15.0) 05/15/16 09:50 INR 1.08 (0.83-1.16) 05/15/16 09:50 ICD10 Worksheet Patient Problems: Problems Problem Status Onset Cervical stenosis of spine Acute
[2016-05-18] MEDS: OXYCODONE/APAP 5/325 TAB PO PRN ×3 (00:46→14:23)
[2016-05-18] MEDS: ONDANSETRON 4 MG/2 ML VIAL IVP PRN (03:50)
[2016-05-18] MEDS: hydrALAZINE 20 MG/ML VIAL IVP PRN ×2 (04:36→22:01)
[2016-05-18 05:17] LABS: HEMATOCRIT 23.1 % (40.0-51.0); HEMOGLOBIN 7.8 g/dL (13.7-17.5); MEAN CELL HEMOGLOBIN 29.7 pg (27.9-34.1); MEAN CELL HEMOGLOBIN CONCENTR. 33.8 g/dL (32.4-36.7); MEAN CELL VOLUME 87.8 fL (81.5-99.8); RED BLOOD CELL COUNT 2.63 10^6/uL (4.40-6.38)
[2016-05-18 05:29] LABS: ALBUMIN 2.8 g/dL (3.5-5.0); ANION GAP 8 mEq/L (8-16); CALCIUM 8.6 mg/dL (8.5-10.4); CARBON DIOXIDE 25 mEq/l (22-31); CHLORIDE 102 mEq/L (97-110); GLOMERULAR FILTRATION RATE 34; GLUCOSE 101 mg/dL (70-100); POTASSIUM 4.2 mEq/L (3.5-5.2); SODIUM 135 mEq/L (134-144)
[2016-05-18] MEDS: ATENOLOL 50 MG TAB PO SCH (08:20)
[2016-05-18] MEDS: PANTOPRAZOLE SODIUM 40 MG TAB PO SCH (08:20)
[2016-05-18] MEDS: TOPIRAMATE 25 MG TAB PO SCH (09:37)
--- NOTE | 2016-05-18 09:51 | SOAPPROG ---
SOAP Progress Note Assessment/Plan: Assessment/Plan: 60 yo M colon cancer s/p colectomy on 05/12/2016, acute post op blood loss anemia. # nausea - might be related to IV meds - will try to wean off [employer] and start orals - will give phenergan in addition to zofran # abdominal pain -will monitor with the oral meds # anemia - H&H slowly improving. 7.8, 23.1 today - will continue to monitor - would need to transfuse blood if <7 # creatinine 2.0 today, same yesterday - improving -- monitor # mild lower ex edema - improving - continue leg elevation Abd xray today tolerating regular diet Cont. DVT prophylaxis OK to SDU S: Patient was standing at the time of examination, says "i feel like shit" [employer] not enough for pain control passed gas 1x yesterday, (+) BM (+) abdominal pain (+) nausea (-) chest pain (-) O: Gen: awake, conscious HEENT: mmm Chest: ctab Cvs: rrr (-) murmurs Abd: tender to palpation, midline and lap incisions clean and dry. (+) large hematoma on right side of abdomen, (+) BS Ext: (+) mild lower ex edema 05/18/16 09:42 Objective: Vital Signs Temp Pulse Resp BP Pulse Ox 37.4 C 87 20 151/83 H 96 05/18/16 08:00 05/18/16 08:00 05/18/16 08:00 05/18/16 08:00 05/18/16 08:00 Laboratory Results 05/18/16 05:00 05/18/16 05:00 05/17/16 05/18/16 05/19/16 05:59 05:59 05:59 Intake Total 1352 1746 Output Total 525 Balance 827 1746 PT 13.9 SEC (12.0-15.0) 05/15/16 09:50 INR 1.08 (0.83-1.16) 05/15/16 09:50 ICD10 Worksheet Patient Problems: Problems Problem Status Onset Cervical stenosis of spine Acute
[2016-05-18] MEDS ORDERED: PROMETHAZINE HCL 25 MG TAB PO PRN (10:03)
--- NOTE | 2016-05-18 10:27 | SOAPPROG ---
SONICCI Progress Note Assessment/Plan: Assessment: 1. SANDRA on CKD ATN, now back at baseline. Total volume up. 2. Anemia Hg up slightly. No urgent need for transfusion 3. K Better 4. Colon CA Path pending 5. HTN Started low dose CCB. Will fold in diuretics today. Subjective: Doing ok Objective: Vital Signs Temp Pulse Resp BP Pulse Ox 37.4 C 87 20 151/83 H 96 05/18/16 08:00 05/18/16 08:00 05/18/16 08:00 05/18/16 08:00 05/18/16 08:00 Laboratory Results 05/18/16 05:00 05/18/16 05:00 05/17/16 05/18/16 05/19/16 05:59 05:59 05:59 Intake Total 1352 1746 Output Total 525 Balance 827 1746 PT 13.9 SEC (12.0-15.0) 05/15/16 09:50 INR 1.08 (0.83-1.16) 05/15/16 09:50 Physical Exam - Physical Exam General Appearance: no apparent distress Respiratory: normal breath sounds Cardiac/Chest: regular rate, rhythm Abdomen: normal bowel sounds, distended Extremities: pedal edema Neuro/Psych: oriented x 3 ICD10 Worksheet Patient Problems: Problems Problem Status Onset Cervical stenosis of spine Acute
[2016-05-18] MEDS ORDERED: HYDROmorphONE/DILAUDID 1 MG/ML SYR IVP ONE (17:00)
[2016-05-18] MEDS ORDERED: HYDROmorphONE/DILAUDID 1 MG/ML SYR IVP PRN (17:18)
[2016-05-18] MEDS: oxyCODONE IR 5 MG TAB PO PRN ×2 (18:39→21:55)
[2016-05-19] MEDS: oxyCODONE IR 5 MG TAB PO PRN ×5 (01:15→23:49)
[2016-05-19 06:00] LABS: HEMATOCRIT 24.8 % (40.0-51.0); MEAN CELL HEMOGLOBIN 28.6 pg (27.9-34.1); MEAN CELL HEMOGLOBIN CONCENTR. 32.3 g/dL (32.4-36.7); MEAN CELL VOLUME 88.6 fL (81.5-99.8); RED BLOOD CELL COUNT 2.8 10^6/uL (4.40-6.38); RED CELL DISTRIBUTION WIDTH 17.1 % (11.5-15.2)
[2016-05-19 06:12] LABS: ANION GAP 7 mEq/L (8-16); CALCIUM 8.6 mg/dL (8.5-10.4); CARBON DIOXIDE 28 mEq/l (22-31); CHLORIDE 101 mEq/L (97-110); CREATININE 2.3 mg/dL (0.7-1.3); GLOMERULAR FILTRATION RATE 29; GLUCOSE 107 mg/dL (70-100); POTASSIUM 4.5 mEq/L (3.5-5.2); SODIUM 136 mEq/L (134-144)
[2016-05-19] MEDS: PANTOPRAZOLE SODIUM 40 MG TAB PO SCH (08:54)
[2016-05-19] MEDS: ATENOLOL 50 MG TAB PO SCH (08:54)
[2016-05-19] MEDS: TOPIRAMATE 25 MG TAB PO SCH (08:54)
[2016-05-19] MEDS: FUROSEMIDE 40 MG TAB PO SCH ×2 (08:56)
[2016-05-19] MEDS ORDERED: POLYETHYLENE GLYCOL 3350 17 GM PKT PO ONE (11:00)
--- NOTE | 2016-05-19 12:27 | SOAPPROG ---
SOAP Progress Note Assessment/Plan: Assessment/Plan: 60 yo M colon cancer s/p colectomy on 05/12/2016, acute post op blood loss anemia. chronic pain pt with lots of postop pain after surgery # fever - CT SCAN W/O CONTRAST - 3WAY ABD XRAY ordered # anemia - H&H slowly improving. 8.0, 24.8 today - will continue to monitor - would need to transfuse blood if <7 # creatinine - stable at 2.3 today - cotinue to monitor # chronic pain - consult to pharmacist for home pain meds # abdominal pain - will monitor with the oral meds - will try Mirolax # nausea - controlled with phenergan + zofran S: Patient was sitting at the time of examination complaining of neck pain -- from night til morning -- (chronic) (+) abdominal pain during day time (-) nausea (-) chest pain (-) O: Gen: awake, conscious HEENT: mmm Chest: no use of accessory muscles Abd: distended, tender to palpation, midline and lap incisions clean and dry. (+ ) large hematoma on right side of abdomen FEBRILE 05/12/16 18:21 05/14/16 16:41 LOOK STABLE TODAY / URINE OUTPUT IS EXCELLENT / CREATININE STABLE AT 3.8 / HEMATOCRIT UP TO 25 / ABDOMEN SOFT NOT REALLY TENDER BUT MILDLY DISTENDED / CONTINUE OBSERVATION AND HOPEFULLY CONTINUED RENAL IMPROVEMENT 05/15/16 12:18 VS STABLE/ SOME BS/ WOUND OK/ AFEBRILE/ HCT DRIFTING DOWN/ MODERATELY DISTENDED/ PATH PENDING/ CREATININE IMPROVING 05/16/16 12:45 COMFORTABLE BUT SOMEWHAT DISTENDED / WOUND OKAY / HEMATOCRIT CONTINUES TO DROP SLOWLY / RENAL FUNCTION RECOVERING WELL WITH EXCELLENT URINE OUTPUT PLAN WILL FOLLOW HIS HEMATOCRIT / POSSIBLE TRANSFUSION IF NEEDED / PATH IS STILL PENDING 05/19/16 12:27 05/19/16 17:24 Objective: Vital Signs Temp Pulse Resp BP Pulse Ox 37.7 C 78 14 167/84 H 97 05/19/16 08:00 05/19/16 08:54 05/19/16 08:00 05/19/16 08:55 05/19/16 08:00 Laboratory Results 05/19/16 05:50 05/19/16 05:50 05/18/16 05/19/16 05/20/16 05:59 05:59 05:59 Intake Total 1746 1080 Balance 1746 1080 PT 13.9 SEC (12.0-15.0) 05/15/16 09:50 INR 1.08 (0.83-1.16) 05/15/16 09:50 ICD10 Worksheet Patient Problems: Problems Problem Status Onset Cervical stenosis of spine Acute
--- NOTE | 2016-05-19 14:57 | SOAPPROG ---
SOAP Progress Note Assessment/Plan: Assessment/Plan: SANDRA on CKD stage III: likely has ATN perioperatively, was oliguric and hyperkalemic. Now with good UOP with Lasix, Cr peaked at 4.1 and came back to baseline at 2.0, today is up to 2.3. - Will continue to monitor. - No emergent need for HD. - Avoid MOM, morphine, demerol, NSAIDs, contrast, aminoglycosides, fleets, and other nephrotoxins. Hypervolemia: pt started on Lasix, will monitor. HTN: uncontrolled, started on amlodipine and Lasix, will monitor. Hyperkalemia: resolved, K 4.5, will continue to monitor. Anemia: 2/2 acute bleed, s/p PRBCs transfused and now stable, continue to monitor. Subjective: No acute events overnight. Pt notes pain is better controlled today but still with abdominal pain. He still has significant swelling in legs. Objective: Vital Signs Temp Pulse Resp BP Pulse Ox 37.7 C 79 18 151/83 H 98 05/19/16 12:00 05/19/16 12:00 05/19/16 12:00 05/19/16 12:00 05/19/16 12:00 Laboratory Results 05/19/16 05:50 05/19/16 05:50 05/18/16 05/19/16 05/20/16 05:59 05:59 05:59 Intake Total 1746 1080 Balance 1746 1080 PT 13.9 SEC (12.0-15.0) 05/15/16 09:50 INR 1.08 (0.83-1.16) 05/15/16 09:50 General: somnolent but easily arousable, oriented, no acute distress Eyes; EOMI, PERRL OP: Clear CV: RRR Resp: nonlabored respirations on NC Abd: soft, NT Ext: +2 edema BLE Neuro: CN II-XII grossly intact, no asterixis Psych: cooperative, appropriate mood and affect ICD10 Worksheet Patient Problems: Problems Problem Status Onset Cervical stenosis of spine Acute
[2016-05-19] MEDS: ONDANSETRON 4 MG/2 ML VIAL IVP PRN (16:10)
[2016-05-19] MEDS ORDERED: METHYLNALTREXONE BROMIDE 12 MG/0.6 ML INJ SC ONE (17:33)
[2016-05-20] MEDS: oxyCODONE IR 5 MG TAB PO PRN ×3 (02:54→23:52)
[2016-05-20 05:25] LABS: HEMATOCRIT 23.2 % (40.0-51.0); HEMOGLOBIN 7.6 g/dL (13.7-17.5); MEAN CELL HEMOGLOBIN 29.1 pg (27.9-34.1); MEAN CELL HEMOGLOBIN CONCENTR. 32.8 g/dL (32.4-36.7); MEAN CELL VOLUME 88.9 fL (81.5-99.8); RED BLOOD CELL COUNT 2.61 10^6/uL (4.40-6.38); RED CELL DISTRIBUTION WIDTH 17.2 % (11.5-15.2)
[2016-05-20 05:36] LABS: ALBUMIN 2.6 g/dL (3.5-5.0); ANION GAP 6 mEq/L (8-16); CALCIUM 8.3 mg/dL (8.5-10.4); CARBON DIOXIDE 27 mEq/l (22-31); CHLORIDE 101 mEq/L (97-110); CREATININE 2.5 mg/dL (0.7-1.3); GLOMERULAR FILTRATION RATE 26; GLUCOSE 92 mg/dL (70-100); POTASSIUM 4.4 mEq/L (3.5-5.2); SODIUM 134 mEq/L (134-144)
[2016-05-20] MEDS: ATENOLOL 50 MG TAB PO SCH (07:33)
[2016-05-20] MEDS: FUROSEMIDE 40 MG TAB PO SCH (07:34)
[2016-05-20] MEDS: TOPIRAMATE 25 MG TAB PO SCH (07:34)
[2016-05-20] MEDS: PANTOPRAZOLE SODIUM 40 MG TAB PO SCH (07:35)
[2016-05-20] MEDS ORDERED: METHYLNALTREXONE BROMIDE 12 MG/0.6 ML INJ SC ONE (08:00)
--- NOTE | 2016-05-20 12:00 | SOAPPROG ---
SOAP Progress Note Assessment/Plan: Assessment:Plan: ARF on CRF-creatinine stable at 2.5 Edema-I = 2250, output incomplete -on lasix -albumin 2.6 -follow weights CKD -baseline creatinine 2 HTN-still above target -follow on current medications Hyperkalemia-resolved 05/20/16 11:58 Subjective: no new complaints Objective: Vital Signs Temp Pulse Resp BP Pulse Ox 37.7 C 90 18 162/81 H 93 05/20/16 10:17 05/20/16 07:31 05/20/16 07:31 05/20/16 07:31 05/20/16 07:31 Laboratory Results 05/20/16 04:44 05/20/16 04:44 05/19/16 05/20/16 05/21/16 05:59 05:59 05:59 Intake Total 1080 2250 Balance 1080 2250 PT 13.9 SEC (12.0-15.0) 05/15/16 09:50 INR 1.08 (0.83-1.16) 05/15/16 09:50 Physical Exam - Physical Exam General Appearance: alert, no apparent distress EENT: normal ENT inspection Neck: normal inspection Respiratory: decreased breath sounds Cardiac/Chest: regular rate, rhythm, No diastolic murmur, No systolic murmur Abdomen: normal bowel sounds, other (bruising and edema in lower abdomen) Extremities: swelling (1+ to knees) ICD10 Worksheet Patient Problems: Problems Problem Status Onset Cervical stenosis of spine Acute
--- NOTE | 2016-05-20 13:13 | SOAPPROG ---
SOAP Progress Note Assessment/Plan: Assessment: 60yo male s/p colectomy for cancer, significant bleeding overnight with decreased HCT, underwent transfusion. Renal consulted given worsening renal failure. Pain controlled, tolerating clears. Reported he had diarrhea last night. PE lethargic, slightly forgetful decreased breath sounds rrr distended abdomen, RLQ incision with large hematoma, sutures in place, soft, hypoactive BS. Plan: appreciate renal consult. Continue clears. Encouraged to get out of bed and walk around. 05/20/16 13:13 Objective: Vital Signs Temp Pulse Resp BP Pulse Ox 37.7 C 90 18 162/81 H 79 L 05/20/16 10:17 05/20/16 07:31 05/20/16 07:31 05/20/16 07:31 05/20/16 12:14 Laboratory Results 05/20/16 04:44 05/20/16 04:44 05/19/16 05/20/16 05/21/16 05:59 05:59 05:59 Intake Total 1080 2250 Balance 1080 2250 PT 13.9 SEC (12.0-15.0) 05/15/16 09:50 INR 1.08 (0.83-1.16) 05/15/16 09:50 ICD10 Worksheet Patient Problems: Problems Problem Status Onset Cervical stenosis of spine Acute
--- NOTE | 2016-05-21 08:31 | SOAPPROG ---
SOAP Progress Note Assessment/Plan: Assessment/Plan: 60 yo M colon cancer s/p colectomy on 05/12/2016, acute post op blood loss anemia. chronic pain pt with lots of postop pain after surgery # fever - CT SCAN W/O CONTRAST - 3WAY ABD XRAY ordered # anemia - H&H slowly improving. 8.0, 24.8 today - will continue to monitor - would need to transfuse blood if <7 # creatinine - stable at 2.3 today - cotinue to monitor # chronic pain - consult to pharmacist for home pain meds # abdominal pain - will monitor with the oral meds - will try Mirolax # nausea - controlled with phenergan + zofran S: Patient was sitting at the time of examination complaining of neck pain -- from night til morning -- (chronic) (+) abdominal pain during day time (-) nausea (-) chest pain (-) O: Gen: awake, conscious HEENT: mmm Chest: no use of accessory muscles Abd: distended, tender to palpation, midline and lap incisions clean and dry. (+ ) large hematoma on right side of abdomen FEBRILE 05/12/16 18:21 05/14/16 16:41 LOOK STABLE TODAY / URINE OUTPUT IS EXCELLENT / CREATININE STABLE AT 3.8 / HEMATOCRIT UP TO 25 / ABDOMEN SOFT NOT REALLY TENDER BUT MILDLY DISTENDED / CONTINUE OBSERVATION AND HOPEFULLY CONTINUED RENAL IMPROVEMENT 05/15/16 12:18 VS STABLE/ SOME BS/ WOUND OK/ AFEBRILE/ HCT DRIFTING DOWN/ MODERATELY DISTENDED/ PATH PENDING/ CREATININE IMPROVING 05/16/16 12:45 COMFORTABLE BUT SOMEWHAT DISTENDED / WOUND OKAY / HEMATOCRIT CONTINUES TO DROP SLOWLY / RENAL FUNCTION RECOVERING WELL WITH EXCELLENT URINE OUTPUT PLAN WILL FOLLOW HIS HEMATOCRIT / POSSIBLE TRANSFUSION IF NEEDED / PATH IS STILL PENDING 05/19/16 12:27 05/19/16 17:24 05/21/16 08:28 situation stable / hematocrit stable / wound okay / eating poorly / large amount of flatus but minimal BM / wants to go home soon / past shows a small adenocarcinoma with 18 nodes negative Objective: Vital Signs Temp Pulse Resp BP Pulse Ox 37.6 C 77 12 153/80 H 93 05/21/16 07:31 05/21/16 07:31 05/21/16 07:31 05/21/16 07:31 05/21/16 07:31 Laboratory Results 05/20/16 04:44 05/20/16 04:44 05/20/16 05/21/16 05/22/16 05:59 05:59 05:59 Intake Total 2250 670 Output Total 850 Balance 2250 -180 PT 13.9 SEC (12.0-15.0) 05/15/16 09:50 INR 1.08 (0.83-1.16) 05/15/16 09:50 ICD10 Worksheet Patient Problems: Problems Problem Status Onset Cervical stenosis of spine Acute
[2016-05-21] MEDS: TOPIRAMATE 25 MG TAB PO SCH (09:00)
[2016-05-21] MEDS: PANTOPRAZOLE SODIUM 40 MG TAB PO SCH (09:00)
[2016-05-21] MEDS: oxyCODONE IR 5 MG TAB PO PRN ×3 (09:00→19:07)
[2016-05-21] MEDS: FUROSEMIDE 40 MG TAB PO SCH (09:00)
[2016-05-21] MEDS: ATENOLOL 50 MG TAB PO SCH (09:00)
--- NOTE | 2016-05-21 10:38 | SOAPPROG ---
SOAP Progress Note Assessment/Plan: Assessment:Plan: ARF on CRF-creatinine stable at 2.5 yesterday -labs in morning Edema-I = 2250/nr, 670/850 -on lasix -albumin 2.6 -follow weights CKD -baseline creatinine 2 HTN-still above target -follow on current medications Hyperkalemia-resolved GI-start daily miralax given chronic narcotic use Pain control-he states he does better when he gets his long acting pain medication and his short acting medication at the same time -this appears to result in less breakthrough pain 05/21/16 10:37 Subjective: pain better after getting oxyIR and oxycontin together at 9 Objective: Vital Signs Temp Pulse Resp BP Pulse Ox 37.6 C 77 12 153/80 H 93 05/21/16 07:31 05/21/16 07:31 05/21/16 07:31 05/21/16 07:31 05/21/16 07:31 Laboratory Results 05/20/16 04:44 05/20/16 04:44 05/20/16 05/21/16 05/22/16 05:59 05:59 05:59 Intake Total 2250 670 Output Total 850 Balance 2250 -180 PT 13.9 SEC (12.0-15.0) 05/15/16 09:50 INR 1.08 (0.83-1.16) 05/15/16 09:50 Physical Exam - Physical Exam General Appearance: WD/WN, alert, no apparent distress EENT: normal ENT inspection Neck: normal inspection Respiratory: lungs clear, normal breath sounds, No respiratory distress Cardiac/Chest: regular rate, rhythm Abdomen: normal bowel sounds, distended, No non-tender Extremities: swelling (1+ above level of socks) ICD10 Worksheet Patient Problems: Problems Problem Status Onset Cervical stenosis of spine Acute
[2016-05-21] MEDS: POLYETHYLENE GLYCOL 3350 17 GM PKT PO SCH (11:49)
[2016-05-22] MEDS: oxyCODONE IR 5 MG TAB PO PRN ×4 (03:43→20:18)
[2016-05-22 05:05] LABS: % IMMATURE GRANULYOCYTES 1.2 % (0.0-1.1); ABSOLUTE IMMATURE GRANULOCYTES 0.11 10^3/uL (0.00-0.10); ADD DIFF? NO; ADD MORPH? NO; ADD SCAN? NO; ATYPICAL LYMPHOCYTE FLAG 60 (0-99); FRAGMENT RBC FLAG 20 (0-99); HEMATOCRIT 23.6 % (40.0-51.0); HEMOGLOBIN 7.7 g/dL (13.7-17.5); LEFT SHIFT FLG 10 (0-99); LIPEMIA HEMOLYSIS FLAG 80 (0-99); MEAN CELL HEMOGLOBIN 28.6 pg (27.9-34.1); MEAN CELL HEMOGLOBIN CONCENTR. 32.6 g/dL (32.4-36.7); MEAN CELL VOLUME 87.7 fL (81.5-99.8); MEAN PLATELET VOLUME 10.4 fL (8.7-11.7); PLATELET CLUMPS FLAG 0 (0-99); PLATELET COUNT 229 10^3/uL (150-400); RED BLOOD CELL COUNT 2.69 10^6/uL (4.40-6.38); RED CELL DISTRIBUTION WIDTH 17.2 % (11.5-15.2)
[2016-05-22 05:34] LABS: ANION GAP 8 mEq/L (8-16); CALCIUM 8.5 mg/dL (8.5-10.4); CARBON DIOXIDE 26 mEq/l (22-31); CHLORIDE 102 mEq/L (97-110); CREATININE 2.6 mg/dL (0.7-1.3); GLOMERULAR FILTRATION RATE 25; GLUCOSE 98 mg/dL (70-100); POTASSIUM 4.2 mEq/L (3.5-5.2); SODIUM 136 mEq/L (134-144)
[2016-05-22] MEDS: ATENOLOL 50 MG TAB PO SCH (08:05)
[2016-05-22] MEDS: FUROSEMIDE 40 MG TAB PO SCH (08:05)
[2016-05-22] MEDS: POLYETHYLENE GLYCOL 3350 17 GM PKT PO SCH (08:05)
[2016-05-22] MEDS: TOPIRAMATE 25 MG TAB PO SCH (08:06)
[2016-05-22] MEDS: PANTOPRAZOLE SODIUM 40 MG TAB PO SCH (08:07)
--- NOTE | 2016-05-22 10:06 | SOAPPROG ---
SOAP Progress Note Assessment/Plan: Assessment: s/p T3N0 transverse colon cancer. Passing flatus. Eager to go home Will discuss with dr. Cote Walking the halls F/U with Dr. Magaña in 1 week S: Eager to go home. No BM yet. O: Sitting in bed Lungs decreased at bases, otherwise clear Regular rate BS present Distended Ecchymosis goes around to back Blister to the right of the umbilicus Otherwise incisions clean Plan: 05/22/16 10:02 Objective: Vital Signs Temp Pulse Resp BP Pulse Ox 37.3 C 76 18 151/88 H 99 05/22/16 07:57 05/22/16 07:57 05/22/16 07:57 05/22/16 07:57 05/22/16 07:57 Laboratory Results 05/22/16 04:59 05/22/16 04:59 05/21/16 05/22/16 05/23/16 05:59 05:59 05:59 Intake Total 670 350 Output Total 850 750 Balance -180 -400 PT 13.9 SEC (12.0-15.0) 05/15/16 09:50 INR 1.08 (0.83-1.16) 05/15/16 09:50 ICD10 Worksheet Patient Problems: Problems Problem Status Onset Cervical stenosis of spine Acute
--- NOTE | 2016-05-22 12:02 | SOAPPROG ---
SOAP Progress Note Assessment/Plan: Assessment:Plan: ARF on CRF-creatinine stable at 2.5 yesterday, 2.6 today -okay for discharge Edema-I = 2250/nr, 670/850, 350/750 -on lasix -albumin 2.6 -follow weights -down from 98.5 to 95.5 -edema better CKD -baseline creatinine 2 HTN-still above target -follow on current medications Hyperkalemia-resolved GI-start daily miralax given chronic narcotic use -titrate up to 1-2 good BM's per day Pain control-he states he does better when he gets his long acting pain medication and his short acting medication at the same time -this appears to result in less breakthrough pain -he feels he can manage this at home Dispo-home today 05/22/16 12:01 Subjective: stable overnite Objective: Vital Signs Temp Pulse Resp BP Pulse Ox 37.3 C 76 18 151/88 H 99 05/22/16 07:57 05/22/16 07:57 05/22/16 07:57 05/22/16 07:57 05/22/16 07:57 Laboratory Results 05/22/16 04:59 05/22/16 04:59 05/21/16 05/22/16 05/23/16 05:59 05:59 05:59 Intake Total 670 350 Output Total 850 750 Balance -180 -400 PT 13.9 SEC (12.0-15.0) 05/15/16 09:50 INR 1.08 (0.83-1.16) 05/15/16 09:50 Physical Exam - Physical Exam General Appearance: WD/WN, alert, no apparent distress EENT: normal ENT inspection Neck: normal inspection Respiratory: lungs clear, normal breath sounds, decreased breath sounds (at bases), No respiratory distress Cardiac/Chest: regular rate, rhythm, systolic murmur Abdomen: normal bowel sounds, distended Extremities: swelling (improved) ICD10 Worksheet Patient Problems: Problems Problem Status Onset Cervical stenosis of spine Acute
[2016-05-23] MEDS: oxyCODONE IR 5 MG TAB PO PRN ×5 (03:16→19:25)
[2016-05-23] MEDS ORDERED: METHYLNALTREXONE BROMIDE 12 MG/0.6 ML INJ SC ONE (08:56)
[2016-05-23] MEDS: ATENOLOL 50 MG TAB PO SCH (09:03)
[2016-05-23] MEDS: TOPIRAMATE 25 MG TAB PO SCH (09:03)
[2016-05-23] MEDS: PANTOPRAZOLE SODIUM 40 MG TAB PO SCH (09:03)
[2016-05-23] MEDS: FUROSEMIDE 40 MG TAB PO SCH (09:03)
[2016-05-23] MEDS: POLYETHYLENE GLYCOL 3350 17 GM PKT PO SCH (11:04)
--- NOTE | 2016-05-23 11:18 | SOAPPROG ---
SOAP Progress Note Assessment/Plan: Assessment: 60yo male s/p colectomy for cancer, significant bleeding overnight with decreased HCT, underwent transfusion. Renal consulted given worsening renal failure. Pain controlled. Reported he had two bowel movements over weekend. Tolerating diet. PE awake, alert decreased breath sounds rrr distended abdomen, RLQ incision with large hematoma, sutures in place, soft, hypoactive BS. Plan: ab xray today, possible D/C today to rehab or home with home care if xray ok Encouraged to get out of bed and walk around. saw pt with Dr Gómez horvath F/U xray 05/20/16 13:13 05/23/16 11:16 Objective: Vital Signs Temp Pulse Resp BP Pulse Ox 37.7 C 77 18 144/80 H 97 05/23/16 08:00 05/23/16 08:00 05/23/16 08:00 05/23/16 08:00 05/23/16 08:00 Laboratory Results 05/22/16 04:59 05/22/16 04:59 05/22/16 05/23/16 05/24/16 05:59 05:59 05:59 Intake Total 350 500 Output Total 750 400 Balance -400 100 PT 13.9 SEC (12.0-15.0) 05/15/16 09:50 INR 1.08 (0.83-1.16) 05/15/16 09:50 ICD10 Worksheet Patient Problems: Problems Problem Status Onset Cervical stenosis of spine Acute
[2016-05-23] MEDS ORDERED: FUROSEMIDE 40 MG TAB PO SCH (12:36)
--- NOTE | 2016-05-23 12:39 | SOAPPROG ---
SOAP Progress Note Assessment/Plan: Assessment/Plan: SANDRA on CKD stage III: likely has ATN perioperatively, was oliguric and hyperkalemic. Now with good UOP with Lasix, Cr peaked at 4.1 and came back to baseline at 2.0, yesterday up to 2.6. - No emergent need for HD. - Will decrease Lasix dose. - Avoid MOM, morphine, demerol, NSAIDs, contrast, aminoglycosides, fleets, and other nephrotoxins. Hypervolemia: pt started on Lasix, will decrease dose as swelling is markedly improved. HTN: ok on current meds. Anemia: 2/2 acute bleed, s/p PRBCs transfused and now stable, continue to monitor. Subjective: No acute events overnight. Pt anxious to go home soon. Objective: Vital Signs Temp Pulse Resp BP Pulse Ox 37.7 C 77 18 144/80 H 97 05/23/16 08:00 05/23/16 08:00 05/23/16 08:00 05/23/16 08:00 05/23/16 08:00 Laboratory Results 05/22/16 04:59 05/22/16 04:59 05/22/16 05/23/16 05/24/16 05:59 05:59 05:59 Intake Total 350 500 Output Total 750 400 Balance -400 100 PT 13.9 SEC (12.0-15.0) 05/15/16 09:50 INR 1.08 (0.83-1.16) 05/15/16 09:50 General: alert and oriented, no acute distress Eyes; EOMI, PERRL OP: Clear CV: RRR Resp: CTA bilat, nonlabored respirations on RA Abd; Soft, NT Ext: +1 edema BLE, improved Neuro: CN II-XII grossly intact, no asterixis Psych: cooperative, appropriate mood and affect ICD10 Worksheet Patient Problems: Problems Problem Status Onset Cervical stenosis of spine Acute
[2016-05-24] MEDS: oxyCODONE IR 5 MG TAB PO PRN ×3 (05:09→14:37)
[2016-05-24 05:22] LABS: ALBUMIN 2.6 g/dL (3.5-5.0); ANION GAP 11 mEq/L (8-16); CALCIUM 8.3 mg/dL (8.5-10.4); CARBON DIOXIDE 22 mEq/l (22-31); CHLORIDE 105 mEq/L (97-110); CREATININE 2.4 mg/dL (0.7-1.3); GLOMERULAR FILTRATION RATE 28; GLUCOSE 89 mg/dL (70-100); POTASSIUM 4.4 mEq/L (3.5-5.2); SODIUM 138 mEq/L (134-144)
[2016-05-24] MEDS: TOPIRAMATE 25 MG TAB PO SCH (08:45)
[2016-05-24] MEDS: POLYETHYLENE GLYCOL 3350 17 GM PKT PO SCH (08:45)
[2016-05-24] MEDS: ATENOLOL 50 MG TAB PO SCH (08:45)
[2016-05-24] MEDS: PANTOPRAZOLE SODIUM 40 MG TAB PO SCH (08:45)
--- NOTE | 2016-05-24 13:14 | SOAPPROG ---
SOAP Progress Note Assessment/Plan: Assessment: 1. SANDRA on CKD ATN, now at 2.4, down from 2.6. BL 2. 2. Anemia Stable 3. K Better 4. Colon CA Follow up with Onc. 5. HTN Started low dose CCB. Will fold in diuretics today. 6. Still with focal area of colonic distension on xray. 05/24/16 13:12 Subjective: Doing better Objective: Vital Signs Temp Pulse Resp BP Pulse Ox 36.9 C 85 20 139/88 H 95 05/24/16 00:00 05/24/16 00:00 05/24/16 04:00 05/24/16 00:00 05/24/16 04:00 Laboratory Results 05/22/16 04:59 05/24/16 04:24 05/23/16 05/24/16 05/25/16 05:59 05:59 05:59 Intake Total 500 Output Total 400 Balance 100 PT 13.9 SEC (12.0-15.0) 05/15/16 09:50 INR 1.08 (0.83-1.16) 05/15/16 09:50 Physical Exam - Physical Exam General Appearance: no apparent distress Respiratory: lungs clear Cardiac/Chest: regular rate, rhythm Abdomen: non-tender, distended Extremities: pedal edema ICD10 Worksheet Patient Problems: Problems Problem Status Onset Cervical stenosis of spine Acute
[2016-05-24 13:29] VITALS: BP 147/83; PULSE 70; RESP 18; TEMP 98.5; O2SAT 92
[2016-05-24] MEDS ORDERED: EPOETIN ALFA 10,000 UNIT/ML VIAL SC SCH (13:30)
--- NOTE | 2016-05-24 14:10 | PDIAF ---
- Diagnosis Diagnosis: s/p R hemicolectomy for colon cancer, chronic kidney disease Code Status: Full Code - Medication Management Discharge Medications: Medications to Continue on Transfer Atenolol [Tenormin 50 mg (*)] 50 mg PO DAILY 02/04/11 [Last Taken 05/12/16] Omeprazole Magnesium [Prilosec Otc] 20 mg PO DAILY 02/04/11 [Last Taken 05/12/16 ] Calcitriol [Calcitriol (*)] 0.25 mcg PO MOWEFRSA 11/16/15 [Last Taken 05/11/16] Fenofibrate [Lofibra] 54 mg PO DAILY 11/16/15 [Last Taken 05/11/16] Furosemide [Lasix 40 MG (*)] 40 mg PO DAILY 11/16/15 [Last Taken 05/11/16] Lisinopril [Zestril 10 mg (*)] 15 mg PO DAILY 11/16/15 [Last Taken 05/11/16] Topiramate [Topamax 25MG (*)] 25 mg PO DAILY 11/16/15 [Last Taken 04/28/16] Allopurinol [Allopurinol 300 MG (RX)] 300 mg PO DAILY 05/03/16 [Last Taken 05/12] Aspirin [Aspirin 81mg (*)] 81 mg PO MOWEFRSA 05/03/16 [Last Taken 05/05/16] Minoxidil [Minoxidil 10 mg (*)] 10 mg PO BID 05/13/16 [Last Taken 05/12/16] oxyCODONE IR [Oxycodone Ir (*)] 10 mg PO Q6 PRN 05/13/16 [Last Taken Unknown] Acetaminophen [Tylenol 325mg (*)] 325 - 650 mg PO Q4HRS PRN #0 tab 05/22/16 [ Last Taken Unknown] Atenolol [Tenormin 50 mg (*)] 50 mg PO DAILY #0 tab 05/22/16 [Last Taken Unknown ] Furosemide [Lasix 40 MG (*)] 40 mg PO DAILY #0 tab 05/22/16 [Last Taken Unknown] Polyethylene Glycol 3350 [Miralax 17 gm (*)] 17 gm PO DAILY #0 pkt 05/22/16 [ Last Taken Unknown] amLODIPine BESYLATE [Norvasc 2.5 mg (*)] 2.5 mg PO BID #60 tab 05/22/16 [Last Taken Unknown] oxyCODONE CR [Oxycontin] 20 mg PO BID #0 tab 05/22/16 [Last Taken Unknown] oxyCODONE IR [Oxycodone Ir (*)] 5 - 15 mg PO Q3H PRN #60 tab 05/22/16 [Last Taken Unknown] Discharge Medications: Refer to the Discharge Home Medication list for PRN reason. PICC Care - Routine: N/A - Orders Services needed: Home Care, Registered Nurse, Physical Therapy, Occupational Therapy Home Care Face to Face: I certify that this patient was under my care and that I had the required [id number] encounter meeting the encounter requirements on the discharge day. My findings support the fact that the patient is homebound as defined in CMS Chapter 7 Medicare Benefits Manual 30.1.1, The condition of the patient is such that there exists a normal inability to leave home and consequently, leaving home would require a considerable and taxing effort. Diet Recommendation: no restrictions on diet Diet Texture: Regular Texture Diet Castro: Not applicable Wound Care Instructions: daily allevyn dressings to abdominal incision and blister site. it is ok for patient to get wounds wet in the shower. no baths. if allevyn not available, then xeroform gauze and gauze or abd is ok, but not ideal. Activity/Weight Bearing Restrictions: no lifting greater than 15 lbs. - Labs/Radiology BMP Date: 05/28/16 (please also report result to patients' head porter and PCP , thanks) - Follow Up Care Current Providers and Referrals: ROSINA COVINGTON [Primary Care Provider] - Main Magaña MD [Medical Doctor] - 1-2 days (please call for an appt to be seen on )
--- NOTE | 2016-05-24 15:00 | GDS ---
[f rep st] DISCHARGE SUMMARY DISCHARGE DIAGNOSES: 1. Ascending colon cancer. 2. Umbilical hernia. 3. Chronic kidney disease, stage 3. 4. Acute postoperative anemia. 5. Hyperkalemia. 6. Diabetes. 7. Gastroesophageal reflux disease. 8. Gout. 9. Hyperlipidemia. PROCEDURES: 1. Laparoscopic-assisted right hemicolectomy. 2. Umbilical hernia repair. CONSULTATIONS: 1. Le Fitch MD, Nephrology. 2. Duncan Weiss, broadcast program director. SPECIAL TESTS: CT scan of the abdomen and pelvis on 05/19/2016 showed diffuse proximal colonic dist ention with no evidence of obstruction (please see report for full details). Gastrografin enema on 05/24/2016 showed an area of smooth concentric narrowing of the distal transverse colon and anastomo tic suture level with proximal distention of the cecum and transverse colon. HOSPITAL COURSE: Mr. Simon is a 60-year-old male with known chronic kidney disease, diabetes, and a right colon cancer who was admitted to undergo laparoscopic right hemicolectomy. He also had his umbilical hernia repaired. These procedures were uncomplicated, and he tolerated them well. His postoperative course was complicated by acute blood loss anemia and hyperkalemia. Nephrology wa s consulted, and the patient was transferred to the ICU. He was transfused with 2 units of packed r ed blood cells. It was felt that there was no emergent need for hemodialysis. He was seen by Nephr ology throughout his stay. Eventually his creatinine came down to 2.4 which is close to his baselin e of 2. His hyperkalemia resolved. His diet was advanced, and his pain was controlled. He did suf mary beth from a postoperative ileus. X-ray showed persistent colonic dilatation despite him having sever al bowel movements. Ultimately we obtained a Gastrografin enema, which showed patency, although manish rowing of his colonic anastomosis. As patient was eating and having bowel movements and without shayy n, it was elected to discharge him to home with early outpatient followup. The patient was very eag er for discharge. DISCHARGE INSTRUCTIONS: Patient was discharged to home in stable condition. Initially it was felt that a subacute nursing facility was warranted, but this was not approved by his insurance. After a [id number] review with his insurance company, home nursing, home physical therapy and home occupa tional therapy were approved. He was to follow up with us in 2 days on in our office or so sweetie if he had any problems or concerns. He will also be following up with his primary doctor. /[id number]/MODL
[2016-05-25 12:14] LABS: MLBRF BRAF ANALYSIS Not Performed; MLBRF HYPERMETHYLATION ANALY Not Performed; MLBRF MLH1 RESULTS See Comments; MLBRF TISSUE 17S-952-B3
[2016-05-26 15:02] LABS: IHC TISSUE ID 17S-952-B3; IHCO INTERPRETATION See Comments; IHCO RESULT See Comments
== END 2016-05-24 16:13 | disposition home health service (06) | DRG 330 ==
LOC: F3E 10:19 → F2N 05-13 12:54 → F3E 05-19 17:23
PROVIDERS: ADMIT Surgery; ATTEND Surgery
PROC: 0DT Gastrointestinal System, Resection (ICD-10-PCS; principal; 2016-05-12 12:30)
PROC: 0WQF4ZZ Repair Abdominal Wall, Percutaneous Endoscopic Approach (ICD-10-PCS; principal; 2016-05-12 12:30)
PROC: 30233N1 Transfusion of Nonautologous Red Blood Cells into Peripheral Vein, Percutaneous Approach (ICD-10-PCS; 2016-05-14)
DX: C18.2 Malignant neoplasm of ascending colon (principal); D62 Acute posthemorrhagic anemia; K91.81 Other intraoperative complications of digestive system; N17.9 Acute kidney failure, unspecified; K42.0 Umbilical hernia with obstruction, without gangrene; E87.5 Hyperkalemia; N18.3 Chronic kidney disease, stage 3 (moderate); E11.9 Type 2 diabetes mellitus without complications; K21.9 Gastro-esophageal reflux disease without esophagitis; M10.9 Gout, unspecified; E78.5 Hyperlipidemia, unspecified; G47.33 Obstructive sleep apnea (adult) (pediatric); Z91.19 Patient's noncompliance with other medical treatment and regimen; I12.9 Hypertensive chronic kidney disease with stage 1 through stage 4 chronic kidney disease, or unspecified chronic kidney disease; J44.9 Chronic obstructive pulmonary disease, unspecified
CPT/HCPCS: 82947-QW; 83010-90; 92507-GN; 92523-GN; 97112-GP; 97116-GP; 97161-GP; 97166-GO; 97530-GP; 97532-GO; 97535-GO; J0360; J0610; J0690; J0697; J0885; J1100; J1170; J1815; J2001; J2212; J2405; J2704; J2710; J3010; P9016; P9041

== ENCOUNTER → 2016-06-15 | Outpatient (CLI) | payer OTHER | LOC: FIMAGING 11:53 | PROVIDERS: ATTEND Surgery | DX: R93.3 Abnormal findings on diagnostic imaging of other parts of digestive tract (principal); Z90.49 Acquired absence of other specified parts of digestive tract ==

== ENCOUNTER → 2016-06-22 | Outpatient (CLI) | payer OTHER | LOC: FIMAGING 09:20 | PROVIDERS: ATTEND Surgery | DX: K57.30 Diverticulosis of large intestine without perforation or abscess without bleeding (principal); Z90.49 Acquired absence of other specified parts of digestive tract ==

== ENCOUNTER → 2018-05-10 | Outpatient (CLI) | payer OTHER | LOC: FIMAGING 11:41 | PROVIDERS: ATTEND Otolaryngology | DX: R22.0 Localized swelling, mass and lump, head (principal) ==